=== PATIENT | female | born 2000 | race Caucasian/White ===

== ENCOUNTER → 2025-02-03 | Outpatient (CLI) | payer BC, SELFPAY | END | disposition home or self-care (01) | PROVIDERS: Referring Provider Nurse Practitioner Women's Health; Visit Provider Nurse Practitioner Women's Health | DX: N82.5 Female genital tract-skin fistulae (principal) | CPT/HCPCS: 87070; 87077; 87186; 87205 ==

== ENCOUNTER → 2025-02-14 | Outpatient (CLI) | payer BC, SELFPAY ==
--- NOTE | 2025-02-14 10:50 | CT_ITS ---
PROCEDURE: PELVIS WITH IV CONTRAST 02/14/2025 REASON FOR EXAM: VAGINAL FISTULA TECHNIQUE: Procedure Code: CTPELW Modality: CT Procedure: PELVIS WITH IV CONTRAST CONTRAST: Isovue 370 VOLUME: 90 mL One or more dose reduction techniques were used (e.g., Automated exposure control, adjustment of the mA and/or kV according to patient size, use of iterative reconstruction technique). RADIATION DOSE SUMMARY: CTDlvol: 28 mGy DLP: 820 mGycm COMPARISON: None FINDINGS: Bladder: Normal Reproductive Organs: Uterus is anteverted. No adnexal mass. The vagina is collapsed. No mass is seen. No definite fistulous collection is seen between the vagina in the adjacent organs. Bowel: Partially imaged small bowel is normal. A few colonic diverticula are present without diverticulitis. The wall of the rectum is not particularly thickened. Mesorectal lymph node left posterolaterally is 11 x 9 mm. Smaller lymph node slightly more superior and anterior is 7 mm round. Appendix: Normal Lymph nodes: Right obturator lymph node is 10 mm round. Vasculature: Limited but normal. Peritoneum / Retroperitoneum: No free fluid, free air, phlegmon or abscess. Bones: Unremarkable. CT/Pelvis WITH IV Contrast IMPRESSION: No vaginal fistula seen. Non-specific prominence of mesorectal lymph nodes. Unremarkable appearance of the rectum; no mass, wall thickening or inflammation seen. Reading Location: [id number]
== END | disposition home or self-care (01) ==
PROVIDERS: Referring Provider Nurse Practitioner Women's Health; Visit Provider Nurse Practitioner Women's Health
DX: N82.5 Female genital tract-skin fistulae (principal)
CPT/HCPCS: 72193; Q9967

== ENCOUNTER 2025-03-04 11:16 | Day surgery (SDC) | payer BC, SELFPAY ==
[2025-02-27 16:45] LABS: Hematocrit 42.8 % (37-47); Hemoglobin 14.2 g/dL (12.0-15.0); Immature Granulocytes Count 0.050 X10^3/uL (0.0-0.0); Mean Corp Hgb Conc 33.2 g/dL (32-36); Mean Corpuscular Volume 91.6 fL (81-99); Mean Platelet Vol. 9.0 fl (6.2-12.0); NRBC Flagged by Analyzer 0 % (0-5); Platelet Count 439 K/mm3 (150-450); RBC Distribution Width CV 12.3 % (11.6-14.6); RBC Distribution Width SD 41.0 fl (35.1-43.9); Red Blood Count 4.67 M/mm3 (4.2-5.4); White Blood Count 14.2 K/mm3 (4.4-11.0)
[2025-03-04] VITALS (8 sets, daily range): BP systolic 97–117; BP diastolic 54–74; PULSE 63–104; RESP 16; TEMP 36.2–36.6; O2SAT 95–100; BMI 33.3
[2025-03-04 11:45] LABS: Internal QC Validated? YES +Cl - CLEAR BKGD; Pregnancy, Urine Negative Negative; Record Kit Lot#,Urine Preg 0000964736
[2025-03-04] MEDS: Lactated Ringers 1,000 ML 15 ML IV (11:49)
--- NOTE | 2025-03-04 12:14 | PCM.PRE.AN2 ---
ASA Classification* ASA Classification ASA Classification: 1 Assessment & Plan Anesthesia* Anesthesia Assessment Anesthesia Assessment: Discussed sedation and/or anesthesia options, risks, benefits, and alternatives with patient/parents/legal guardian/POA. Questions invited. The patient/parents/legal guardian/POA seems to understand and agrees to proceed with anesthesia plan. Reviewed the physical assessment, medical history, allergy history and patient home medications list prior to surgery/procedure/anesthetic and documented any changes. Performed airway and anesthesia risk assessments. Anesthesia Type Anesthesia Type: MAC History Source History Obtained from:: Patient and Chart Anesthesia Focused Assessment* Temperature: 97.7 F Pulse Rate: 63 Blood Pressure: 117/74 Respiratory Rate: 16 Pulse Ox: 100 Oxygen Delivery Method: Room Air Airway Assessment Mouth opens: >3 cm Mallampati Score: I Teeth Condition: Intact Neck Range of motion (ROM): Full ROM Labs Anesthesia Preop lab: CBC WBC, (4.4-11.0) 14.2 K/mm3 H 02/27/25, 16:15 RBC, (4.2-5.4) 4.67 M/mm3 02/27/25, 16:15 Hgb, (12.0-15.0) 14.2 g/dL 02/27/25, 16:15 Hct, (37-47) 42.8 % 02/27/25, 16:15 Plt Count, (150-450) 439 K/mm3 02/27/25, 16:15 CHEMISTRY COAG Urine Test Negative Negative Today, 11:28 Pre-Assessment Diagnosis/Proposed Procedure Planned Operative Procedure(s): I&D OF VAGINAL ABSCESS TRACK Anesthesia History 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 When Was Last Pacemaker Check QUESTION #4 FULL TEXT: You/Your Family Experience fever (hyperthermia) with Anesthesia Last Oral Intake Last Oral intake: Last Oral Intake NPO since 21:00 03/04/25 11:43 Meds taken in AM with sips of No 03/04/25 11:43 water? Meds patient instructed to take am of surgery PONV PONV - automobile service station attendant: PONV - automobile service station attendant Female Yes 02/26/25 16:10 HX of Motion Sickness No 02/26/25 16:10 HX of N/V After Surgery No 02/26/25 16:10 Non-Smoker No 02/26/25 16:10 Duration of Surgery greater No 02/26/25 16:10 than 60 minutes Number of Risk Factors 1 02/26/25 16:10 PONV Score Low Risk 02/26/25 16:10 Height & Weight Height & Weight: Anesthesia: Height & Weight Height 4 ft 11 in 03/04/25 11:43 Weight: 75 kg 03/04/25 11:43 Body Mass Index (BMI) 33.3 03/04/25 11:43 Respiratory Assessment Respiratory Assessment - automobile service station attendant: Respiratory Tract Infection Hx - automobile service station attendant Hx Respiratory Tract Infection No 02/26/25 16:10 STOP Sleep Apnea STOP Sleep Apnea - automobile service station attendant: STOP Sleep Apnea - automobile service station attendant Hx Hypertension No 02/26/25 16:10 Hx Sleep Apnea No 02/26/25 16:10 CPAP BIPAP Do you snore loudly (louder No 02/26/25 16:10 than talking or can be heard Do you often feel tired/ No 02/26/25 16:10 fatigued/ sleepy during daytime? Has anyone observed you stop No 02/26/25 16:10 breathing during sleep? STOP Results Negative 02/26/25 16:10 QUESTION #5 FULL TEXT : Do you snore loudly (louder than talking or can be heard through closed doors)? Tobacco Use History Tobacco Use History - automobile service station attendant: Tobacco Use History - automobile service station attendant Tobacco Use Smoking Status Current every day smoker 02/26/25 16:10 Hx Tobacco Use Yes 02/26/25 16:10 Years Smoking Packs Smoked per Day Smoking Cessation Date was within the last 15 years Hx Smoking Cessation Date Hx Smoking Cessation Counseling Hematologic Medial History Hematologic Hx - automobile service station attendant: Hematologic Medical Hx - health care administrator Hx of Blood Transfusion No 02/26/25 16:10 Hx of Transfusion in last 3 No 02/26/25 16:10 Months Date of Last Transfusion (if within last 3 months) Ever experience any problems No 02/26/25 16:10 with transfusion(s)? Specify any problems Hx of Preganancy in last 3 No 02/26/25 16:10 Months Nurse Filling Out Transfusion DSCHRIBER 02/26/25 16:10 & Questions: Date: 02/26/25 02/26/25 16:10 Time: 16:12 02/26/25 16:10 Patient unable to answer at this time (ie. confused, unrespo /Reproduction History /Reproductive History - automobile service station attendant: /Reproductive Hx- automobile service station attendant Hx Now No 02/26/25 16:10 Gestational Age (in weeks): EDC: Hx Hx Para Hx Section SAB No 02/26/25 16:10 Active Medications Active Medications: Current Medications Generic Name Dose Route Start Last Admin Trade Name Freq PRN Reason Stop Dose Admin Lactated Ringer's 1,000 mls @ 15 mls/hr 03/04/25 11:30 03/04/25 11:49 IV 15 mls/hr .Q48H KHADIJAH Administration PFSH Medical History (Updated 02/26/25 @ 16:15 by Lory Miguel) Marijuana use Migraine headache Shortness of breath on exertion Vapes nicotine containing substance Loss of consciousness Anxiety and depression Perineal abscess Bartholin's cyst Home Medications ?Medication ?Instructions ?Recorded ?Last Taken ?Type cholecalciferol (vitamin D3) 100 100 mcg PO QDAY 01/27/25 Unknown History mcg (4,000 unit) tablet drospirenone 3 mg-ethinyl 1 tab PO QDAY 01/27/25 Unknown History estradiol 0.03 mg tablet propranolol 60 mg capsule,24 60 mg PO QHS 01/27/25 Unknown History hr,extended release quetiapine 50 mg tablet 50 mg PO QHS 01/27/25 Unknown History inulin-chromium picolinate 2 2 tab PO DAILY 02/03/25 Unknown History gram-100 mcg chewable tablet (Fiber Gummies (with chromium)) spironolactone 100 mg tablet 100 mg PO QDAY #60 tabs 02/03/25 Unknown Rx (Aldactone) Lactobacillus acidophilus 0.5 mg 0.5 mg PO DAILY 02/26/25 Unknown History (100 million cell) tablet Allergy/AdvReac Type Severity Reaction Status Date / Time cat dander (cats) Allergy Mild dry skin Verified 03/04/25 11:36 Family History Grandmother Breast cancer Diabetes Father Alcoholism Mother Diabetes Anxiety Aunt Breast cancer Surgical History H/O oral surgery Social History current occupational status: employed current occupation: [employer] Smoking Status: Former smoker quit date: 01/30/25 alcohol intake: never substance use type: does not use seatbelt use: always do you feel safe at home: Yes Review of Systems (Anesthesia) ROS Narrative System reviewed and no additional complaints, except as documented.
--- OUTSIDE RECORDS SUMMARY | 2025-03-04 12:51 | XMS RPT_ITS | CCD ---
Author Organization [facility] Care Team Providers Care Manager Imaging Name Role Phone Unavailable Primary Care Provider UnavailMIRIAM Loco Attending Unavailable NIKHIL RUBIO Attending Unavailab NATALIE Mcbride Primary Care Unavailable NATALIE SIMPSON Primary Care Unavailable VAHE HERNANDEZ Attending Unavailable PREETHI MILLER, DR NATALIE Fulton Attending Unavailable MARTA JIMENEZ MD Primary Care Unavail able [facility] STALLION KEEPER-RAIL OPERATOR, [facility] Primary Care Unava ilable [facility] [employer], BROOKE Sterling Attending Unava ilable [facility] [place] Primary Care Provider [place] STALLION KEEPER - [facility], [place] Primary Care Provider MELVIN RAMIREZ Attending Unavailable [facility] Care Unavailable [employer] STALLION KEEPER-RAIL OPERATOR, BROOKE N Attending Unava ilable [employer] STALLION KEEPER-RAIL OPERATOR, [facility] Primary Care Unava ilable Sue FINANCE LECTURER-CPam Attending Provider Sue FINANCE LECTURER-C, Pam Referring Provider [phone] [facility] [place] Primary Care Provider Dr. Jacey Paul DO Attending Provider Jacey Paul Referring Unavailabl e AMANDEEP CURRIE Primary Care Unavailable Jacey Paul Attending Unavailabl e Sue FINANCE LECTURERPam Attending Unavailable [place] FINANCE LECTURER, Pam Referring Unavailable KUSH, AMANDEEP Primary Care Unavailable [place] FINANCE LECTURER, Pam Attending Unavailable [place] FINANCE LECTURER, Pam Referring Unavailable Jacey Paul Attending UnavailPam Cook NP Attending Unavailable Allergies Allergy Classification Reported Allergen(s) Allergy Type Date of Onset Reaction(s) Facility (4 sources) cat dander; Translations: [cat dander] Allergy to substance 02-03-2025 dry skin [facility] Medications Current Medications Medication Drug Class(es) Dates Sig (Normalized) Sig (Original) acyclovir 400 mg oral tablet (2 sources) Herpesvirus Nucleoside Analog DNA Polymerase Inhibitor, Herpes Simplex Virus Nucleoside Analog DNA Polymerase Inhibitor, Herpes Zoster Virus Nucleoside Analog DNA Polymerase Inhibitor Start: 07-06-2023 take 1 tablet by mouth once daily acyclovir (Zovirax) 400 MG tablet Take 400 mg by mouth daily. 0 07/06/2023 Active aluminum chloride 200 mg/ml topical solution (4 sources) Start: 08-11-2023 Drysol 20 % external solution APPLY 1 APPLICATION TOPICALLY TWICE A WEEK NEEDED FOR EXCESSIVE SWEATING 08/11/2023 Active amoxicillin 875 mg oral tablet (1 source) Penicillin-class Antibacterial Start: 06-28-2022 End: 07-08-2022 take 1 tablet by mouth every twelve hours amoxicillin (AMOXIL) 875 mg tablet Indications: Acute non-recurrent maxillary sinusitis Take 1 tablet by mouth every 12 hours for 10 days. 20 tablet 0 06/28/2022 07/08/2022 Active Comment on above: Take 1 tablet by norah th every 12 hours for 10 days. cholecalciferol 0.1 mg oral tablet (3 sources) Vitamin D Start: 01-27-2025 take 1 tablet by mouth once daily Cholecalciferol (Vitamin D3) 100 mcg (4,000 unit) tablet Active 100 ug PO daily January 27, 2025 12:00am chromium picolinate 0.1 mg / inulin 2000 mg chewable tablet (3 sources) Start: 02-03-2025 Inulin-Chromium Picolinate (Fiber Gummies (With Chromium)) 2-100 gram-mcg tablet,chewable Active {tbl} PO February 03, 2025 12:00am Drospirenone-Ethinyl Estradiol (7 sources) Progestin, Estrogen Start: 01-27-2025 Drospirenone-Ethinyl Estradiol 3-0.03 mg tablet Active 1 {tbl} PO daily January 27, 2025 12:00am Start: 02-07-2024 End: 02-06-2025 drospirenone-ethinyl estradi ol (Maggie, Ocella) 3-0.03 MG tablet Indications: control counseling Take 1 tablet by mouth daily. 84 tablet 3 02/07/2024 02/06/2025 Active Start: 09-08-2023 End: 09-07-2024 drospirenone-ethinyl estradi ol (Cailin, Gianvi) 3-0.02 MG tablet Indications: control counseling Take 1 tablet by mouth daily. 28 tablet 11 09/08/2023 02/07/2024 Discontinued fluticasone propionate 0.05 mg/actuat metered dose nasal spray (4 sources) Corticosteroid Start: 08-18-2023 fluticasone (Flonase) 50 MCG/ACT nasal spray 08/18/2023 Active omeprazole 40 mg delayed release oral capsule (2 sources) Proton Pump Inhibitor Start: 11-16-2022 omeprazole (PriLOSEC) [address] capsule 24 hr propranolol hydrochloride 60 mg extended release oral capsule (7 sources) beta-Adrenergic Shannan Start: 01-27-2025 take 1 capsule by mouth once daily Propranolol 60 mg capsule,extended release 24 hr Active 60 mg PO daily January 27, 2025 12:00am Start: 08-18-2023 propranolol LA (Inderal LA) 60 MG 24 hr capsule 08/18/2023 Active QUEtiapine 50 mg oral tablet (7 sources) Atypical Antipsychotic Start: 01-27-2025 take 1 tablet by mouth once daily Quetiapine 50 mg tablet Active 50 mg PO daily January 27, 2025 12:00am Start: 10-13-2022 QUEtiapine (SE ROquel) 25 MG tablet 10/13/2022 Active spironolactone 100 mg oral tablet (3 sources) Aldosterone Antagonist Start: 02-03-2025 take 1 tablet by mouth once daily Spironolactone (Aldactone) 100 mg tablet Active 100 mg PO daily 60 2 February 03, 2025 12:00am sulfamethoxazole 800 mg / trimethoprim 160 mg oral tablet (2 sources) Dihydrofolate Reductase Inhibitor Antibacterial, Sulfonamide Antimicrobial Start: 08-22-2023 sulfamethoxazole-tr imethoprim (Bactrim DS) 800-160 MG tablet topiramate 25 mg oral tablet (4 sources) Start: 08-18-2023 topiramate (Topamax) 25 MG tablet 08/18/2023 Active traMADol hydrochloride 50 mg oral tablet (2 sources) Opioid Agonist Start: 08-22-2023 traMADol (Ultram) 50 MG tablet Completed/Discontinued Medications Medication Drug Class(es) Dates Sig (Normalized) Sig (Original) acetaminophen 500 mg oral tablet (1 source) take 1 tablet by mouth every eight hours as needed acetaminophen (TYLENOL EXTRA STRENGTH) 500 mg tablet Take 500 mg by mouth every 8 hours as needed. 0 Active Comment on above: Take 500 mg by mouth every 8 hours as needed. ampicillin 500 mg oral capsule (4 sources) Penicillin-class Antibacterial Start: 02-06-2025 End: 02-18-2025 take 1 capsule by mouth every eight hours Ampicillin 500 mg capsule Discontinued 500 mg PO Q8H 15 5 0 February 13, 2025 4:33pm February 17, 2025 12:00am February 18, 2025 12:06am doxycycline monohydrate 100 mg oral capsule (3 sources) Tetracycline-class Drug Start: 02-03-2025 End: 02-06-2025 take 1 capsule by mouth twice daily Doxycycline Monohydrate 100 mg capsule Discontinued 100 mg PO TWICE A DAY 20 10 0 February 03, 2025 12:00am February 12, 2025 12:00am February 06, 2025 12:27pm Pseudoephedrine (1 source) alpha-Adrenergic Agonist pseudoephedrine HCl (SUDAFED ORAL) Take by mouth. 0 Active Comment on above: Take by mouth. Problems Active Problems Problem Classification Problem Date Documented Date Episodic/Chronic Anxiety disorders (3 sources) Mixed anxiety and depressive disorder; Translations: [Anxiety disorder, unspecified] 02-03-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 Contraceptive and procreative management (2 sources) Patient encounter status; Translations: [Encounter for other general counseling and advice on contraception] 09-08-2023 Episodic Fever of unknown origin (1 source) Fever, unspecified; Translations: [Fever, unspecified fever cause] Onset: 06-28-2022 Episodic Inflammatory diseases of female pelvic organs (4 sources) Abscess of right Bartholin's gland; Translations: [Abscess of Bartholin's gland] Onset: 12-30-2024 08-25-2023 Episodic Malaise and fatigue (2 sources) Other fatigue; Translations: [Other fatigue] Onset: 08-11-2023 Episodic Nonspecific chest pain (1 source) Chest pain, unspecified; Translations: [Chest pain, unspecified type] Onset: 06-28-2022 Episodic Other eye disorders (2 sources) Ocular pain, right eye; Translations: [Pain of right eye] Onset: 08-16-2022 Episodic Other female genital disorders (4 sources) Vaginoperineal fistula; 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-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 Other female genital disorders (1 source) Other female genital tract fistulae; Translations: [Other female genital tract fistulae] Onset: 02-26-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 Other female genital disorders (1 source) Female genital tract-skin fistulae; Translations: [Female genital tract-skin fistulae] Onset: 02-28-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 Other female genital disorders (4 sources) Cyst of vulva; Translations: [Vulvar cyst] 02-03-2025 Episodic Other skin disorders (4 sources) Axillary hidradenitis suppurativa; Translations: [Hidradenitis suppurativa] 02-03-2025 Episodic Comment on above: as teenager Other upper respiratory infections (1 source) Acute maxillary sinusitis, unspecified; Translations: [Acute non-recurrent maxillary sinusitis] Onset: 06-28-2022 Episodic Residual codes; unclassified (2 sources) High risk heterosexual behavior; Translations: [High risk heterosexual behavior] Onset: 08-11-2023 Episodic Past or Other Problems Problem Classification Problem Date Documented Date Episodic/Chronic Immunizations and screening for infectious disease (2 sources) Contact with and (suspected) exposure to infections with a predominantly sexual mode of transmission; Translations: [Contact with and (suspected) exposure to infections with a predominantly sexual mode of transmission] Onset: 08-18-2022 Episodic Residual codes; unclassified (2 sources) Family history of malignant neoplasm of breast; Translations: [Family history of malignant neoplasm of breast] Onset: 12-08-2023 Episodic Results Test Name Value Interpretation Reference Range Facility CBC W/Diff, Automatedon - Absolute Lymph 3.40 X10 3/uL Normal 0.83-4.51 [facility] Comment on above: Performed By: #### BTSPAT, L100.0100 ### # [facility] [address] [place], [address] Absolute Neut 9.4 X10 3/uL High 2.0-7.7 [facility] Comment on above: Performed By: #### BTSPAT, L100.0100 ### # [facility] [address] [place], [address] Basophils/100 WBC (Bld) 0.4 % Normal 0-1 [facility] Comment on above: Performed By: #### BTSPAT, L100.0100 ### # [facility] [address] [place], [address] Eosinophils/100 WBC (Bld) 2.9 % Normal 0-5 [facility] Comment on above: Performed By: #### BTSPAT, L100.0100 ### # [facility] [address] [place], [address] Erythrocyte distribution width (RBC) [Ratio] 12.3 % Normal 11.6-14.6 [facility] Comment on above: Performed By: #### BTSPAT, L100.0100 ### # [facility] [address] [place], [address] Hematocrit (Bld) [Volume fraction] 42.8 % Normal 37-47 [facility] Comment on above: Performed By: #### BTSPAT, L100.0100 ### # [facility] [address] [place], [address] Hemoglobin (Bld) [Mass/Vol] 14.2 g/dL Normal 12.0-15.0 [facility] Comment on above: Performed By: #### BTSPAT, L100.0100 ### # [facility] [address] [place], [address] IG% 0.400 Normal 0.0-0.9 [facility] Comment on above: Result Comment: IG% - Immature Granulocy echo (promyelocytes, myelocytes and metamyelocytes) > 1% indicates that a LEFT SHIFT is Present. Performed By: #### B TSPAT, L100.0100 #### [facility] [address] [place], [address] Lymphocytes/100 WBC (Bld) 24.0 % Normal 19-41 [facility] Comment on above: Performed By: #### BTSPAT, L100.0100 ### # [facility] [address] [place], [address] MCH (RBC) [Entitic mass] 30.4 pg Normal 27.0-32.0 [facility] Comment on above: Performed By: #### BTSPAT, L100.0100 ### # [facility] [address] [place], [address] MCHC (RBC) [Mass/Vol] 33.2 g/dL Normal 32-36 [facility] Comment on above: Performed By: #### BTSPAT, L100.0100 ### # [facility] [address] [place], [address] MCV (RBC) [Entitic vol] 91.6 fL Normal 81-99 [facility] Comment on above: Performed By: #### BTSPAT, L100.0100 ### # [facility] [address] [place], [address] Monocytes/100 WBC (Bld) 5.7 % Normal 0-10 [facility] Comment on above: Performed By: #### BTSPAT, L100.0100 ### # [facility] [address] [place], [address] Neutrophils/100 WBC (Bld) 66.6 % Normal 47-70 [facility] Comment on above: Performed By: #### BTSPAT, L100.0100 ### # [facility] [address] [place], [address] Nucleated RBC (Bld) [#/Vol] 0 10*3/uL Normal 0-5 [facility] Comment on above: Performed By: #### BTSPAT, L100.0100 ### # [facility] [address] [place], [address] Platelet mean volume (Bld) [Entitic vol] 9.0 fL Normal 6.2-12.0 [facility] Comment on above: Performed By: #### BTSPAT, L100.0100 ### # [facility] [address] [place], [address] Platelets (Bld) [#/Vol] 439 10*3/uL Normal 150-450 [facility] Comment on above: Performed By: #### BTSPAT, L100.0100 ### # [facility] [address] [place], [address] RBC (Bld) [#/Vol] 4.67 10*6/uL Normal 4.2-5.4 [facility] Comment on above: Performed By: #### BTSPAT, L100.0100 ### # [facility] [address] [place], [address] RDW SD 41.0 fl Normal 35.1-43.9 [facility] Comment on above: Performed By: #### BTSPAT, L100.0100 ### # [facility] [address] [place], [address] WBC (Bld) [#/Vol] 14.2 10*3/uL High 4.4-11.0 [facility] Comment on above: Performed By: #### BTSPAT, L100.0100 ### # [facility] [address] [place], [address] Type AND Screen - PAT ONLYon 02-27-2025 Ab SCREEN GEL Negative Normal [facility] Comment on above: Order Comment: Surgery Date: 03/04/25 Reason for Laboratory Test PREOP 20250304 No N N S I D VAGINAL ABCESS TRACK Performed By: #### B TSPAT, L100.0100 #### [facility] [address] [place], [address] ABO and Rh group Nom (Bld) Blood group O Rh(D) positive Normal [facility] Comment on above: Order Comment: Surgery Date: 03/04/25 Reason for Laboratory Test PREOP 20250304 No N N S I D VAGINAL ABCESS TRACK Performed By: #### B TSPAT, L100.0100 #### [facility] [address] [place], [place], [address] [employer] Office Visit Reporton 02-25-2025 [employer] Office Visit Report [facility] [address], [address] [place] [address] OFFICE VISIT Date of Service: 02/25/25 MR#: [id number] Acct: [id number] Name: ANIKA METZGER Rep #: [id number] : 2000 Provider: Dr. Jacey Wagoner DO Age/Sex: 24/F [place] [facility] [place]: Signed Intake Vital Signs 02/03/25 08:50 02/25/25 13:41 Height 4 ft 11 in 4 ft 11 in Weight: 168 lb 165 lb 8 oz BMI 33.9 33.4 BP 112/82 H 115/62 Intake Visit Reasons: I D under anesthesia Binder Stripper Machine Required: No Is patient in pain?: No Allergies cat dander (cats) Allergy (Mild, Verified 02/25/25 13:46) dry skin Medications ???Medication ???Instructions ???Recorded ???Confirmed ???Type cholecalciferol (vitamin D3) 100 100 mcg PO QDAY 01/27/25 02/25/25 History mcg (4,000 unit) tablet drospirenone 3 mg-ethinyl 1 tab PO QDAY 01/27/25 02/25/25 Hi story estradiol 0.03 mg tablet propranolol 60 mg capsule,24 60 mg PO QDAY 01/27/25 02/25/25 Hi story hr,extended release quetiapine 50 mg tablet 50 mg PO QDAY 01/27/25 02/25/25 Hi story inulin-chromium picolinate 2 tab PO 02/03/25 02/25/25 History gram-100 mcg chewable tablet (Fiber Gummies (with chromium)) spironolactone 100 mg tablet 100 mg PO QDAY #60 tabs 02/03/25 0 02/25/25 Rx (Aldactone) Post menopausal: No Patient : No : No Control [facility] Medical History Anxiety and depression Perineal abscess Bartholin's cyst Surgical History H/O oral surgery Family History Grandmother Breast cancer Diabetes Father Alcoholism Mother Diabetes Anxiety Aunt Breast cancer Social History current occupational status: employed current occupation: [employer] Smoking Status: Former smoker quit date: 01/30/25 alcohol intake: never substance use type: does not use seatbelt use: always do you feel safe at home: Yes HPI I D under anesthesia Details: ANIKA METZGER is a 24 year old who presents for discussion about a vaginal track that expresses purulent material both spontaneously and with manipulation of the gland on the left side of her vagina. Recent MRI shows that she does not have a recto/ vaginal fistula. She had a Bartholin gland cyst I D'd 2 years ago. She declined the word catheter at that time. It appears that this then developed a superficial fistula within the perineal body. After a long discussion about treatment options, she has decided that she would like for me to open the fistula track for surgical healing. History 1 Elective abortions 1 Hx Para 0 Spontaneous abortions Hx # Term Pregnancies Ectopic pregnancies Hx # Pregnancies Multiple births # of living children 0 ROS Const ROS Unobtainable: All systems reviewed are unremarkable except as noted in H Resp Resp: Reports system reviewed and no additional complaints, except as documented; Denies cough GI GI: Reports as per HPI Psych Psych: Reports system reviewed and no additional complaints, except as documented Exam Const General: cooperative, healthy appearing, comfortable and no acute distress Resp Effort Inspection: normal respiratory effort Other: small opening to the left and 3 cm below the perinum. A 2 cm fluctuant gland is palpated on the lower left side of introitus. When this is pushed on, purulent material comes our of the small opening. 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 I have discussed with the patient the risks, benefits, and alternatives of the procedure which include but are not limited to risks of anesthesia, bleeding, infection, possible damage to bowel, bladder, or surrounding vasculature which could lead to additional surgery to evaluate any complications. Patient agrees to procedure and wishes to proceed. ACOG/uptodate references given for additional information regarding procedure. plan is to insert a small lacramal duct probe into the track and unroof the track to allow for secondary healing. 02/25/25 1510 Date _ Jacey Mcneal Signature: Date (more content not included)... Normal [facility] Pelvis WITH IV Contraston Pelvis WITH IV Contrast [facility] Services [address] [place] [address] Pelvis WITH IV Contrast MR#: [id number] Acct: [id number] Name: ANIKA METZGER Rep #: [id number] : 2000 F 24 From: Kennedy Motley MD PCP: BROOKE ESQUIVEL Status: REG CLI Study: Pelvis WITH IV Contrast Date of Exam: 02/14/25 Exam# [id number] Ordering Dr: Jacey Paul DO PROCEDURE: PELVIS WITH IV CONTRAST 02/14/2025 REASON FOR EXAM: VAGINAL FISTULA TECHNIQUE: Procedure Code: CTPELW Modality: CT Procedure: PELVIS WITH IV CONTRAST CONTRAST: Isovue 370 VOLUME: 90 mL One or more dose reduction techniques were used (e.g., Automated exposure control, adjustment of the mA and/or kV according to patient size, use of iterative reconstruction technique). RADIATION DOSE SUMMARY: CTDlvol: 28 mGy DLP: 820 mGycm COMPARISON: None FINDINGS: Bladder: Normal Reproductive Organs: Uterus is anteverted. No adnexal mass. The vagina is collapsed. No mass is seen. No definite fistulous collection is seen between the vagina in the adjacent organs. Bowel: Partially imaged small bowel is normal. A few colonic diverticula are present without diverticulitis. The wall of the rectum is not particularly thickened. Mesorectal lymph node left posterolaterally is 11 x 9 mm. Smaller lymph node slightly more superior and anterior is 7 mm round. Appendix: Normal Lymph nodes: Right obturator lymph node is 10 mm round. Vasculature: Limited but normal. Peritoneum / Retroperitoneum: No free fluid, free air, phlegmon or abscess. Bones: Unremarkable. CT/Pelvis WITH IV Contrast IMPRESSION: No vaginal fistula seen. Non-specific prominence of mesorectal lymph nodes. Unremarkable appearance of the rectum; no mass, wall thickening or inflammation seen. Reading Location: [id number] CC: Dr. Jacey Paul DO; BROOKE ESQUIVEL Liquor Inspector: Signed Normal [facility] Wound Cultureon 02-06-2025 WC Pending Strep anginosus Amount Growth 1+ Staphylococcus epidermidis Staphylococcus epidermidis Strep anginosus: REACTION Ampicillin Islt CADENCE <=0.25 S Penicillin G Islt CADENCE <=0.06 Cefotaxime Islt CADENCE 2 R cefTRIAXone Islt CADENCE 0.25 S Erythromycin Islt CADENCE <=0.12 S Staphylococcus epidermidis: REACTION cefOXitin Susc Islt POS Doxycycline Islt CADENCE >=16 Clindamycin Islt CADENCE <=0.12 S Clindamycin.induced Susc Islt NEG Erythromycin Islt CADENCE >=8 R Gentamicin Islt CADENCE <=0.5 S Linezolid Islt CADENCE 2 S Oxacillin Susc Islt >=4 R Tetracycline Islt CADENCE >=16 R TMP SMX Islt CADENCE 160 R Vancomycin Islt CADENCE 2 S Normal [facility] Comment on above: Performed By: #### M100.3000, M100.1999 #### [facility] [address] [place], [address] Gram Stainon 02-03-2025 GS Gram Stain No organisms seen 1+ White Blood Cells Normal [facility] Comment on above: Performed By: #### M100.3000, M100.1999 #### [facility] [address] [place], [address] Gram stainOrdered By: Pam Rogers on 02-03-2025 Microscopic observation Gram stain Nom (Unsp spec) [facility] [employer] Office Visit Reporton 02-03-2025 [employer] Office Visit Report [facility] [address], [address] [place] [address] OFFICE VISIT Date of Service: 02/03/25 MR#: [id number] Acct: [id number] Name: ANIKA METZGER Rep #: [id number] : 2000 Provider: RAMAKRISHNA cash Age/Sex: 24/F [place] [facility] [place]: Signed Intake Vital Signs 02/03/25 08:50 Height 4 ft 11 in Weight: 168 lb BMI 33.9 BP 112/82 H Intake Visit Reasons: Vaginal Cyst (Daily) Chief Complaint: Vaginal cyst (Daily) Binder Stripper Machine Required: No Is patient in pain?: No Allergies cat dander (cats) Allergy (Mild, Verified 02/03/25 08:45) dry skin Medications ???Medication ???Instructions ???Recorded ???Confirmed ???Type cholecalciferol (vitamin D3) 100 100 mcg PO QDAY 01/27/25 02/03/25 History mcg (4,000 unit) tablet drospirenone 3 mg-ethinyl 1 tab PO QDAY 01/27/25 02/03/25 Hi story estradiol 0.03 mg tablet propranolol 60 mg capsule,24 60 mg PO QDAY 01/27/25 02/03/25 Hi story hr,extended release quetiapine 50 mg tablet 50 mg PO QDAY 01/27/25 02/03/25 Hi story doxycycline monohydrate 100 mg 100 mg PO BID 10 days #20 caps 02/03/25 Rx capsule inulin-chromium picolinate 2 tab PO 02/03/25 02/03/25 History gram-100 mcg chewable tablet (Fiber Gummies (with chromium)) spironolactone 100 mg tablet 100 mg PO QDAY #60 tabs 02/03/25 0 02/03/25 Rx (Aldactone) Is last menstrual period known: Yes Last Menstrual Period: 01/27/25 Post menopausal: No Patient : No : No Control Method: OCP [facility] Medical History (Updated 02/03/25 @ 10:02 by Pam Rogers FINANCE LECTURER, FINANCE LECTURER-C) Anxiety and depression Perineal abscess Bartholin's cyst Surgical History (Updated 02/03/25 @ 08:[address]) H/O oral surgery Family History Grandmother Breast cancer Diabetes Father Alcoholism Mother Diabetes Anxiety Aunt Breast cancer Social History (Updated 02/03/25 @ 08:[address]) current occupational status: employed current occupation: [employer] Smoking Status: Former smoker quit date: 01/30/25 alcohol intake: never substance use type: does not use seatbelt use: always do you feel safe at home: Yes HPI Vaginal Cyst (Daily) Details: ANIKA METZGER is a 24 year old who presents for new patient that has 3 vaginal cysts that are off and on painful and draining brown discharge. Saw Brooke Esquivel [employer]UR[employer], her PCP who did an I D but hasn't healed properly. This started in September. Has been on bactrim and keflex. States will not heal so PCP referred here. Also states had axillary hidradenitis at teen. She had I D of another vaginal abscess >1 year ago that healed appropriately. States up to date on paps. She is sexually active, on OCP. Past treatment chlamydia, gonorrhea. Denies new partner since last STD exam with PCP. Female Reproductive History Last Menstrual Period: 01/27/25 Cycle Length: 21-35 Questions: metrorrhagia: No, sexually active: Yes, dyspareunia: No and PCB: No History 1 Elective abortions 1 Hx Para 0 Spontaneous abortions Hx # Term Pregnancies Ectopic pregnancies Hx # Pregnancies Multiple births # of living children 0 ROS Const Constitutional: Reports system reviewed and no additional complaints, except as documented Eyes Eyes: Reports system reviewed and no additional complaints, except as documented GI GI: Denies abdominal pain or change in bowel habits : Reports as per HPI Exam Const General: cooperative and no acute distress Nutritional Appearance: well nourished Orientation: oriented x3 External Female Exam: normal appearance of the urethra Urethra: normal appearance of the urethra Other: left perineal space with pinpoint opening, can feel firm tract towards vaginal introitus. Able to compress yellow puslike discharge, culture collected. 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 Discussed can be related to previous history of hydradenitis. CT of vaginal area to confirm no rectal involvement Management will be dependent on CT results. 02/03/25 1008 Da (more content not included)... Normal [place] [facility] Routine wound cultureOrdered By: Pam Rogers on 02-03-2025 Microbial culture, routine Staphylococcus epidermidis Abnormal [place] [facility] 36on 10-09-2024 36 Called and LVM to sc hedule an appointment / see how she is doing. Informed patient to call back if she is wanting to follow up. Vivien Barakat MA [facility] 36on 10-08-2024 36 S: Patient Provider Brooke Alvin called the clinical access center stating she has a lump in the vagina B: Concern for calixto gland blockage A: Reporting the gland was excised in the office and is draining . She has increased pain and is concerned she may need surgical intervention . R:No availability at the office today . Brooke stated she will send her to the ED . Patient instructed to call back with worsening symptoms, concerns or questions. Reason for Disposition SEVERE vaginal pain and not improved 2 hours after pain medicine Protocols used: Vaginal [id number] [facility] Office Visiton 12-08-2023 Follow-up visit [id number] Kristyn Metzger 2000 F Date Provider Department Center 12/08/2023 [id number]-JHGTHGYMELVIN RAMIREZ [facility] Family History Problem Relation Age of Onset Breast cancer Paternal Grandmother Comments: Unsure age Diabetes Mother Breast cancer Father's Sister 40 - 49 Family Status - Relation Status Age at Paternal Grandmother Father Alive Mother Alive Father's Sister Alive Level of Service:54128 [place] PERIODIC PREVENTIVE MED EST PATIENT 18-39 YRS Reason for Visit and Comments: Annual Exam [83] [facility] Progress Noteon 12-08-2023 Progress Note Anika L Tisha 12/08/2023 23 y.o. Chief Complaint Patient presents with Annual Exam Primary Care Physician: Brooke Esquivel HPI: Anika Metzger is a 23 y.o. female here today for annual exam. Patient's last menstrual period was 11/03/2023 (approximate). control method: started Cailin in august Menses: since starting cailin, have been coming more frequently q21 days instead of q4 weeks Sexually Active: yes Dyspareunia: no HPV Vaccination: yes Had STD testing in jul 2023 Past Medical History: Diagnosis Date Migraine History reviewed. No pertinent surgical history. Family History Problem Relation Name Age of Onset Breast cancer Paternal Grandmother Unsure age Diabetes Mother Breast cancer Father's Sister 40 - 49 OB History Para Term AB Living 1 1 0 SAB IAB Ectopic Multiple Live Births # Outcome Date GA Lbr Tarik/2nd Weight Sex Type Anes PTL Lv 1 AB 06/2023 Surgical Florentino MEDICATIONS: Current Outpatient Medications Medication Sig Dispense Refill drospirenone-ethinyl estradiol (Cailin, Gianvi) 3-0.02 MG tablet Take 1 tablet by mouth daily. 28 tablet 11 Drysol 20 % external solution APPLY 1 APPLICATION TOPICALLY TWICE A WEEK NEEDED FOR EXCESSIVE SWEATING fluticasone (Flonase) 50 MCG/ACT nasal spray propranolol LA (Inderal LA) 60 MG 24 hr capsule QUEtiapine (SEROquel) 25 MG tablet topiramate (Topamax) 25 MG tablet No current facility-administered medications for this visit. ALLERGIES: Allergies as of 12/08/2023 (No Known Allergies) REVIEW OF SYSTEMS Review of Systems Constitutional: Negative for chills and fever. HENT: Negative for congestion and sore throat. Respiratory: Negative for cough and shortness of breath. Cardiovascular: Negative for chest pain and leg swelling. Gastrointestinal: Negative for abdominal pain, constipation, diarrhea, nausea and vomiting. Genitourinary: Negative for dysuria, frequency, pelvic pain, urgency, vaginal bleeding, vaginal discharge and vaginal pain. Musculoskeletal: Negative for back pain. Skin: Negative for wound. Neurological: Negative for syncope and weakness. Psychiatric/Behavioral: Negative for behavioral problems. PHYSICAL EXAMINATION: BP 120/70 Ht 4' 11 (1.499 m) Wt 141 lb (64 kg) LMP 11/03/2023 (Approximate) BMI 28.48 kg/m? Physical Exam Constitutional: Appearance: Normal appearance. HENT: Head: Normocephalic and atraumatic. Mouth/Throat: Mouth: Mucous membranes are moist. Eyes: Extraocular Movements: Extraocular movements intact. Cardiovascular: Rate and Rhythm: Normal rate and regular rhythm. Pulmonary: Effort: Pulmonary effort is normal. Chest: Breasts: Right: No swelling, bleeding, mass, nipple discharge, skin change or tenderness. Left: No swelling, bleeding, mass, nipple discharge, skin change or tenderness. Abdominal: General: There is no distension. Palpations: Abdomen is soft. There is no mass. Tenderness: There is no abdominal tenderness. There is no guarding or rebound. Genitourinary: Exam position: Lithotomy position. Labia: Right: No rash or lesion. Left: No rash or lesion. Vagina: No vaginal discharge or erythema. Cervix: No cervical motion tenderness, discharge, friability, lesion, erythema or cervical bleeding. Uterus: Normal. Not enlarged and not tender. Adnexa: Right adnexa normal and left adnexa normal. Right: No mass or tenderness. Left: No mass or tenderness. Musculoskeletal: General: No swelling. Normal range of motion. Cervical back: Normal range of motion. Lymphadenopathy: Upper Body: Right upper body: No axillary adenopathy. Left upper body: No axillary adenopathy. Skin: General: Skin is warm and dry. Neurological: General: No focal deficit present. Mental Status: She is alert and oriented to person, place, and time. Psychiatric: Mood and Affect: Mood normal. Behavior: Behavior normal. Thought Content: Thought content normal. ASSESSMENT: Diagnosis Plan 1. Well female exam with routine gynecological exam Pap Smear 2. Family history of breast cancer PLAN: - Pap collected - Counseled on breast awareness. Aunt with breast cancer diagnosis in 40s. Discussed genetic testing. Will discuss when she has insurance again - Counseled to exercise at least 30min three times per week. Take a daily multivitamin or 1000 Units of Vit D. - control and barrier recommendations discussed. STD counseling and prevention reviewed. Had negative testing in May (GC/CT/HIV/RPR) - Gardasil counseling completed for all patients 9-45 yo. - Routine health maintenance per patients PCP. Follow up in about 1 year (around 12/07/2024) for Annual Exam. No orders of the defined types were placed in this encounter. Normal [facility] Progress Note ?A automotive service technician was off ered to be present during her exam. The patient: declined Normal [facility] PCRHSVon 08-16-2023 HSV 1/2 Source Blood Normal [facility] ([place]) Comment on above: Performed By: #### GFR, TSH, ADIFF, B12, ANEU, HIV, CBC, LIPID, VIDH, RPR, CMP, [id number] #### [address] [address] PCRHSVon 08-15-2023 HSV-1 DNA Negative Normal Negative [facility] ([place]) Comment on above: Performed By: #### GFR, TSH, ADIFF, B12, ANEU, HIV, CBC, LIPID, VIDH, RPR, CMP, [id number] #### [address] [address] HSV-2 DNA Negative Normal Negative [facility] ([place]) Comment on above: Result Comment: This test was developed and its performance characteristics determined by [employer]. It has not been cleared or approved by the U.S. Food and Drug Administration. The FDA has determined that such clearance or approval is not necessary. This test is used for clinical purposes. It should not be regarded as investigational or research. Performed At: [facility] [id number] Matthew Jaramillo MD Ph:[phone] Performed By: #### G FR, TSH, ADIFF, B12, ANEU, HIV, CBC, LIPID, VIDH, RPR, CMP, [id number] #### [place] [address] CTPCRon 08-13-2023 C. trachomatis Interp Normal See CT Interp N [facility] ([place]) Comment on above: Result Comment: C. trachomatis DNA not d etected. Specimen is presumptive negative for C. trachomatis. A negative result does not preclude C. trachomatis infection because results depend on adequate specimen collection, absence of inhibitors, and sufficient DNA to be detected. See CT Interp N Performed By: #### G FR, TSH, ADIFF, B12, ANEU, HIV, CBC, LIPID, VIDH, RPR, CMP, [id number] #### [place] [id number] C.trachomatis PCR Negative Normal Negative [facility] ([place]) Comment on above: Result Comment: Molecular (PCR) assay pe rformed on the [employer]00 system. Performed By: #### G FR, TSH, ADIFF, B12, ANEU, HIV, CBC, LIPID, VIDH, RPR, CMP, [id number] #### [address] [address] Chlam Source Urine Normal [facility] ([place]) Comment on above: Performed By: #### GFR, TSH, ADIFF, B12, ANEU, HIV, CBC, LIPID, VIDH, RPR, CMP, [id number] #### [address] [address] MILTM0ix 08-13-2023 GC PCR Source Urine Normal [facility] ([place]) Comment on above: Performed By: #### GFR, TSH, ADIFF, B12, ANEU, HIV, CBC, LIPID, VIDH, RPR, CMP, [id number] #### [address] [address] N. gonorrhoeae (PCR) Negative Normal Negative [facility] ([place] Comment on above: Result Comment: Molecular (PCR) assay pe rformed on the [employer] 4800 System. Performed By: #### G FR, TSH, ADIFF, B12, ANEU, HIV, CBC, LIPID, VIDH, RPR, CMP, [id number] #### [address] [address] N. gonorrhoeae Interp Normal See NG Interp N [facility] ([place] Comment on above: Result Comment: N. gonorrhoeae DNA not d etected. Specimen is presumptive negative for N. gonorrhoeae. A negative result does not preclude Neisseria gonorrhoeae infection because results depend on adequate specimen collection, absence of inhibitors, and sufficient DNA to be detected. See NG Interp N Performed By: #### G FR, TSH, ADIFF, B12, ANEU, HIV, CBC, LIPID, VIDH, RPR, CMP, [id number] #### [address] [address] RPRon 08-12-2023 Reagin Ab RPR Ql (S) Non-Reactive Normal Non-Reacti ve [facility] ([place]) Comment on above: Result Comment: The RPR test is a non-tr eponemal assay useful as an aid in the diagnosis of primary and secondary syphilis. It converts to positive generally within 2 weeks after the appearance of a lesion. This test is also useful for monitoring response to antibiotic therapy. A positive RPR screening test will be followed by the FTA ABS test. False positive RPR tests may occur in 1) patients with underlying autoimmune disorders, 2) elderly patients, 3) , and 4) other conditions with abnormal serum globulins. Performed By: #### G FR, TSH, ADIFF, B12, ANEU, HIV, CBC, LIPID, VIDH, RPR, CMP, [id number] #### [address] [address] .Auto Diffon 08-11-2023 Basophil, Absolute 0.1 10 3/mcL Normal 0.0-0.3 [facility] ([place]) Comment on above: Performed By: #### GFR, TSH, ADIFF, B12, ANEU, HIV, CBC, LIPID, VIDH, RPR, CMP, [id number] #### [address] [address] Basophils/100 WBC (Bld) 0.7 % Normal 0.0-2.5 [facility] ([place]) Comment on above: Performed By: #### GFR, TSH, ADIFF, B12, ANEU, HIV, CBC, LIPID, VIDH, RPR, CMP, [id number] #### [place] [id number] Eosinophil, Absolute 0.2 10 3/mcL Normal 0.0-0.7 [facility] ([place]) Comment on above: Performed By: #### GFR, TSH, ADIFF, B12, ANEU, HIV, CBC, LIPID, VIDH, RPR, CMP, [id number] #### [address] [address] Eosinophils/100 WBC (Bld) 1.8 % Normal 0.0-6.0 [facility] ([place]) Comment on above: Performed By: #### GFR, TSH, ADIFF, B12, ANEU, HIV, CBC, LIPID, VIDH, RPR, CMP, [id number] #### [address] [address] Lymphocyte, Absolute 4.4 10 3/mcL High 0.9-4.3 [facility] ([place]) Comment on above: Performed By: #### GFR, TSH, ADIFF, B12, ANEU, HIV, CBC, LIPID, VIDH, RPR, CMP, [id number] #### [address] [address] Lymphocytes/100 WBC (Bld) 31.5 % Normal 20.0-40.0 [facility] ([place]) Comment on above: Performed By: #### GFR, TSH, ADIFF, B12, ANEU, HIV, CBC, LIPID, VIDH, RPR, CMP, [id number] #### [address] [address] Monocyte, Absolute 0.7 10 3/mcL Normal 0.1-1.4 [facility] ([place] Comment on above: Performed By: #### GFR, TSH, ADIFF, B12, ANEU, HIV, CBC, LIPID, VIDH, RPR, CMP, [id number] #### [address] [address] Monocytes/100 WBC (Bld) 5.1 % Normal 2.0-13.0 [facility] ([place] Comment on above: Performed By: #### GFR, TSH, ADIFF, B12, ANEU, HIV, CBC, LIPID, VIDH, RPR, CMP, [id number] #### [address] [address] Neutrophils/100 WBC (Bld) 60.9 % Normal 50.0-75.0 [facility] ([place] Comment on above: Performed By: #### GFR, TSH, ADIFF, B12, ANEU, HIV, CBC, LIPID, VIDH, RPR, CMP, [id number] #### [address] [address] .GFRon 08-11-2023 GFR >60 Normal [facility] ([place] Comment on above: Result Comment: GFR Population mean for , Non- Americans Ages 20-29 = 116 mL/min/1.73 sq.m. Ages 30-39 = 107 mL/min/1.73 sq.m. Ages 40-49 = 99 mL/min/1.73 sq.m. Ages 50-59 = 93 mL/min/1.73 sq.m. Ages 60-69 = 85 mL/min/1.73 sq.m. Ages 70+ = 75 mL/min/1.73 sq.m. Chronic Kidney Disease: Less than 60 mL/min/1.73 square meters End Stage Renal Disease: Less than 15 mL/min/1.73 square meters Performed By: #### G FR, TSH, ADIFF, B12, ANEU, HIV, CBC, LIPID, VIDH, RPR, CMP, [id number] #### [address] [address] GFR Non- >60 Normal [facility] ([place]) Comment on above: Result Comment: GFR Population mean for , Non- Americans Ages 20-29 = 116 mL/min/1.73 sq.m. Ages 30-39 = 107 mL/min/1.73 sq.m. Ages 40-49 = 99 mL/min/1.73 sq.m. Ages 50-59 = 93 mL/min/1.73 sq.m. Ages 60-69 = 85 mL/min/1.73 sq.m. Ages 70+ = 75 mL/min/1.73 sq.m. Chronic Kidney Disease: Less than 60 mL/min/1.73 square meters End Stage Renal Disease: Less than 15 mL/min/1.73 square meters Performed By: #### G FR, TSH, ADIFF, B12, ANEU, HIV, CBC, LIPID, VIDH, RPR, CMP, [id number] #### [place] [address] .NEUABSon 08-11-2023 Neutrophil, Absolute 8.4 10 3/mcL High 2.3-8.1 [facility] ([place]) Comment on above: Performed By: #### GFR, TSH, ADIFF, B12, ANEU, HIV, CBC, LIPID, VIDH, RPR, CMP, [id number] #### [place] [id number] B12on 08-11-2023 Cobalamin (Vitamin B12) [Mass/Vol] 477 pg/mL Normal 211-911 [facility] ([place]) Comment on above: Performed By: #### GFR, TSH, ADIFF, B12, ANEU, HIV, CBC, LIPID, VIDH, RPR, CMP, [id number] #### [place] [id number] CBCon 08-11-2023 Erythrocyte distribution width (RBC) [Ratio] 14.0 % Normal 11.5-15.5 [facility] ([place] Comment on above: Performed By: #### GFR, TSH, ADIFF, B12, ANEU, HIV, CBC, LIPID, VIDH, RPR, CMP, [id number] #### [place] [address] Hematocrit (Bld) [Volume fraction] 43.9 % Normal 34.0-46.0 [facility] ([place] Comment on above: Performed By: #### GFR, TSH, ADIFF, B12, ANEU, HIV, CBC, LIPID, VIDH, RPR, CMP, [id number] #### [place] [address] Hgb 14.5 G/dL Normal 12.0-16.0 [facility] ([place] Comment on above: Performed By: #### GFR, TSH, ADIFF, B12, ANEU, HIV, CBC, LIPID, VIDH, RPR, CMP, [id number] #### [place] [address] MCH (RBC) [Entitic mass] 31.4 pg Normal 27.0-33.0 [facility] ([place] Comment on above: Performed By: #### GFR, TSH, ADIFF, B12, ANEU, HIV, CBC, LIPID, VIDH, RPR, CMP, [id number] #### [place] [address] MCHC 33.1 G/dL Normal 32.0-36.0 [facility] ([place] Comment on above: Performed By: #### GFR, TSH, ADIFF, B12, ANEU, HIV, CBC, LIPID, VIDH, RPR, CMP, [id number] #### [place] [address] MCV (RBC) [Entitic vol] 95.0 fL Normal 80.0-99.0 [facility] ([place]) Comment on above: Performed By: #### GFR, TSH, ADIFF, B12, ANEU, HIV, CBC, LIPID, VIDH, RPR, CMP, [id number] #### [place] [address] Platelet 434 10 3/mcL Normal 150-450 [facility] ([place] Comment on above: Performed By: #### GFR, TSH, ADIFF, B12, ANEU, HIV, CBC, LIPID, VIDH, RPR, CMP, [id number] #### [place] [address] Platelet mean volume (Bld) [Entitic vol] 7.8 fL Normal 6.6-10.5 [facility] ([place] Comment on above: Performed By: #### GFR, TSH, ADIFF, B12, ANEU, HIV, CBC, LIPID, VIDH, RPR, CMP, [id number] #### [place] [address] RBC 4.62 10 6/mcL Normal 4.10-5.30 [facility] ([place] Comment on above: Performed By: #### GFR, TSH, ADIFF, B12, ANEU, HIV, CBC, LIPID, VIDH, RPR, CMP, [id number] #### [place] [address] WBC 13.8 10 3/mcL High 4.5-10.8 [facility] ([place] Comment on above: Performed By: #### GFR, TSH, ADIFF, B12, ANEU, HIV, CBC, LIPID, VIDH, RPR, CMP, [id number] #### [place] [address] CMPon 08-11-2023 Albumin Level 4.5 G/dL Normal 3.2-4.8 [facility] ([place]) Comment on above: Performed By: #### GFR, TSH, ADIFF, B12, ANEU, HIV, CBC, LIPID, VIDH, RPR, CMP, [id number] #### [place] [address] Albumin/Globuli n [Mass ratio] 1.5 {ratio} Normal 0.9-1.6 [facility] ([place]) Comment on above: Performed By: #### GFR, TSH, ADIFF, B12, ANEU, HIV, CBC, LIPID, VIDH, RPR, CMP, [id number] #### [place] [address] ALP [Catalytic activity/Vol] 71 U/L Normal 38-126 [facility] ([place] Comment on above: Performed By: #### GFR, TSH, ADIFF, B12, ANEU, HIV, CBC, LIPID, VIDH, RPR, CMP, [id number] #### [address] [address] ALT/SGPT <8 Low 10-49 [facility] ([place] Comment on above: Performed By: #### GFR, TSH, ADIFF, B12, ANEU, HIV, CBC, LIPID, VIDH, RPR, CMP, [id number] #### [place] [id number] AST [Catalytic activity/Vol] 14 U/L Normal 8-34 [facility] ([place] Comment on above: Performed By: #### GFR, TSH, ADIFF, B12, ANEU, HIV, CBC, LIPID, VIDH, RPR, CMP, [id number] #### [place] [id number] Bili Total 0.50 mg/dL Normal 0.20-1.20 [facility] ([place]) Comment on above: Result Comment: Use of this assay is not recommended for patients undergoing treatment with eltrombopag due to the potential for falsely elevated results. Performed By: #### G FR, TSH, ADIFF, B12, ANEU, HIV, CBC, LIPID, VIDH, RPR, CMP, [id number] #### [place] [id number] BUN/Creatinine Ratio 16.7 ratio Normal 10.0-22.0 [facility] ([place] Comment on above: Performed By: #### GFR, TSH, ADIFF, B12, ANEU, HIV, CBC, LIPID, VIDH, RPR, CMP, [id number] #### [place] [id number] Calcium [Mass/Vol] 10.1 mg/dL Normal 8.7-10.4 [facility] ([place] Comment on above: Performed By: #### GFR, TSH, ADIFF, B12, ANEU, HIV, CBC, LIPID, VIDH, RPR, CMP, [id number] #### [address] [address] Chloride [Moles/Vol] 108 mmol/L Normal 98-110 [facility] ([place] Comment on above: Performed By: #### GFR, TSH, ADIFF, B12, ANEU, HIV, CBC, LIPID, VIDH, RPR, CMP, [id number] #### [address] [address] CO2 [Moles/Vol] 26 mmol/L Normal 22-32 [facility] ([place] Comment on above: Performed By: #### GFR, TSH, ADIFF, B12, ANEU, HIV, CBC, LIPID, VIDH, RPR, CMP, [id number] #### [address] [address] Creatinine [Mass/Vol] 0.72 mg/dL Normal 0.50-1.20 [facility] ([place] Comment on above: Performed By: #### GFR, TSH, ADIFF, B12, ANEU, HIV, CBC, LIPID, VIDH, RPR, CMP, [id number] #### [address] [address] Electrolyte Balance 6.0 mEq/L Normal 4.0-15.0 [facility] ([place] Comment on above: Performed By: #### GFR, TSH, ADIFF, B12, ANEU, HIV, CBC, LIPID, VIDH, RPR, CMP, [id number] #### [address] [address] Globulin 3.0 G/dL Normal 1.5-3.8 [facility] ([place] Comment on above: Performed By: #### GFR, TSH, ADIFF, B12, ANEU, HIV, CBC, LIPID, VIDH, RPR, CMP, [id number] #### [address] [address] Glucose [Mass/Vol] 78 mg/dL Normal 70-110 [facility] ([place] Comment on above: Performed By: #### GFR, TSH, ADIFF, B12, ANEU, HIV, CBC, LIPID, VIDH, RPR, CMP, [id number] #### [address] [address] Potassium [Moles/Vol] 4.1 mmol/L Normal 3.5-5.0 [facility] ([place] Comment on above: Performed By: #### GFR, TSH, ADIFF, B12, ANEU, HIV, CBC, LIPID, VIDH, RPR, CMP, [id number] #### [address] [address] Sodium [Moles/Vol] 140 mmol/L Normal 136-145 [facility] ([place] Comment on above: Performed By: #### GFR, TSH, ADIFF, B12, ANEU, HIV, CBC, LIPID, VIDH, RPR, CMP, [id number] #### [place] [id number] Total Protein 7.5 G/dL Normal 5.7-8.2 [facility] ([place]) Comment on above: Result Comment: Note - New Reference Karmen taylor in effect 12/31/19 Performed By: #### G FR, TSH, ADIFF, B12, ANEU, HIV, CBC, LIPID, VIDH, RPR, CMP, [id number] #### [address] [address] Urea nitrogen [Mass/Vol] 12.0 mg/dL Normal 8.0-22.0 [facility] ([place] Comment on above: Performed By: #### GFR, TSH, ADIFF, B12, ANEU, HIV, CBC, LIPID, VIDH, RPR, CMP, [id number] #### [place] [id number] HIVon 08-11-2023 HIV 1/2 Ab Non-Reactive Normal Non-Reacti ve [facility] ([place] Comment on above: Result Comment: Specimen is negative for anti-HIV-1 and anti-HIV-2. Performed By: #### G FR, TSH, ADIFF, B12, ANEU, HIV, CBC, LIPID, VIDH, RPR, CMP, [id number] #### [address] [address] LIPIDon 08-11-2023 Cholesterol [Mass/Vol] 199 mg/dL Normal 50-199 [facility] ([place]) Comment on above: Result Comment: Cholesterol Reference In terval: Less than 200 Desirable 200-239 Borderline high risk 240 and above High risk Performed By: #### G FR, TSH, ADIFF, B12, ANEU, HIV, CBC, LIPID, VIDH, RPR, CMP, [id number] #### [address] [address] Cholesterol in HDL [Mass/Vol] 49 mg/dL Normal 40-59 [facility] ([place] Comment on above: Performed By: #### GFR, TSH, ADIFF, B12, ANEU, HIV, CBC, LIPID, VIDH, RPR, CMP, [id number] #### [address] [address] Cholesterol in LDL [Mass/Vol] 136 mg/dL High 0-129 [facility] ([place] Comment on above: Performed By: #### GFR, TSH, ADIFF, B12, ANEU, HIV, CBC, LIPID, VIDH, RPR, CMP, [id number] #### [address] [address] Triglyceride [Mass/Vol] 71 mg/dL Normal 3-149 [facility] ([place] Comment on above: Performed By: #### GFR, TSH, ADIFF, B12, ANEU, HIV, CBC, LIPID, VIDH, RPR, CMP, [id number] #### [address] [address] TSHon 08-11-2023 TSH 1.576 mIU/mL Normal 0.550-4.78 0 [facility] ([place]) Comment on above: Result Comment: Note - New Reference Karmen taylor in effect 12/31/19 Performed By: #### G FR, TSH, ADIFF, B12, ANEU, HIV, CBC, LIPID, VIDH, RPR, CMP, [id number] #### [address] [address] VIDHon 08-11-2023 Vit. D 25-Hydroxy 27.7 ng/mL Normal [facility] ([place]) Comment on above: Result Comment: Interpretive Values Base d on Total 25(OH)D: Severe Deficiency <20 ng/mL Mild to Moderate Deficiency 20-30 ng/mL Optimum Levels 30-100 ng/mL Toxicity Possible >100 ng/mL Performed By: #### G FR, TSH, ADIFF, B12, ANEU, HIV, CBC, LIPID, VIDH, RPR, CMP, [id number] #### [place] [id number] HSVABon 08-23-2022 HSV IgM Qualitative Negative Normal Negative [facility] ([place]) Comment on above: Result Comment: HSV IgM antibody test is typically used as an aid in diagnosis of primary HSV infection. A negative HSV IgM result cannot exclude recent primary HSV infection if the specimen collected within 7-10 days after onset of signs and symptoms. Should suspect lesions be present, HSV PCR is strongly recommended, if possible. Otherwise, repeat serology using both HSV-1 IgG and HSV-2 IgG after 3-6 weeks is suggested. Performed By: [place] [address] Principal Secretary: Lars Chand III, M.D. CLIA#: [id number] Performed By: #### G FR, TSH, ADIFF, B12, ANEU, HIV, CBC, LIPID, VIDH, RPR, CMP, [id number] #### [place] [address] [id number] 08-20-2022 HSV IgG 1 Qualitative Positive Abnormal Negative [facility] ([place]) Comment on above: Result Comment: The result suggests rece nt or past infection with HSV-1. Performed By: [place] [address] Principal Secretary: Lars Chand III, M.D. CLIA#: [id number] Performed By: #### G FR, TSH, ADIFF, B12, ANEU, HIV, CBC, LIPID, VIDH, RPR, CMP, [id number] #### [place] [address] HSV IgG 2 Qualitative Negative Normal Negative [facility] ([place]) Comment on above: Result Comment: No evidence of past hist ory of HSV-2 infection. Negative result cannot exclude HSV-2 infection if the specimen collected 4-6 weeks after a primary episode of HSV-2 infection. Early institution of antiviral agents may delay or abrogate specific humoral response. Performed By: [facility] [address] [place] [address] Principal Secretary: Lars Chand III, M.D. CLIA#: [id number] Performed By: #### G FR, TSH, ADIFF, B12, ANEU, HIV, CBC, LIPID, VIDH, RPR, CMP, [id number] #### [facility] [address] [place] [address] Basic metabolic 2000 panelon 08-19-2022 Anion gap [Moles/Vol] 3 mmol/L Low 5-16 [facility] Comment on above: Order Comment: Specimen Type: BLOOD SPEC IMENOrdering Facility: [facility] Address: [address] Performed By: #### 2 4320-07, 1987-10 ####[facility] LABORATORYCLIA [id number] [place] [address] [place] Calcium [Mass/Vol] 9.2 mg/dL Normal 8.5-10.5 [facility] Comment on above: Order Comment: Specimen Type: BLOOD SPEC IMENOrdering Facility: [facility] Address: [address] Performed By: #### 2 4320-07, 1987-10 ####[facility] LABORATORYCLIA [id number] [place] [address] [place] Chloride [Moles/Vol] 107 mmol/L Normal 98-107 [facility] Comment on above: Order Comment: Specimen Type: BLOOD SPEC IMENOrdering Facility: [facility] Address: [address] [place] [address] Performed By: #### 2 4320-07, 1987-10 ####[facility] LABORATORYCLIA [id number] [place] [address] [place] CO2 [Moles/Vol] 29 mmol/L Normal 21-32 [facility] Comment on above: Order Comment: Specimen Type: BLOOD SPEC IMENOrdering Facility: [facility] Address: [address] [place] [address] Performed By: #### 2 43206-13, 1987-10 ####[facility] LABORATORYCLIA [id number] [address] [place] Creatinine [Mass/Vol] 0.67 mg/dL Normal 0.51-0.95 [facility] Comment on above: Order Comment: Specimen Type: BLOOD SPEC IMENOrdering Facility: [facility] Address: [address] [address] Result Comment: Nina ents receiving either N-Acetylcysteine (NAC) or Metamizole prior to venipuncture, may have falsely depressed results. Performed By: #### 2 4320-07, 1987-10 ####[facility] LABORATORYCLIA [id number] [address] ESTIMATED GLOMERULAR FILTRATION RATE 126 mL/min/1.73m??? Normal >=60 [facility] Comment on above: Order Comment: Specimen Type: BLOOD SPEC IMENOrdering Facility: [facility] Address: [address] [place] [address] Result Comment: Shaista mated Glomerular Filtration Rate (eGFR) is calculated using the 2020 CKD-EPI creatinine equation. This equation utilizes serum creatinine, sex, and age as parameters. The creatinine assay has traceable calibration to isotope dilution-mass spectrometry. Refer to KDIGO guidelines for clinical interpretation. In patients with unstable renal function, e.g. those with acute kidney injury, the eGFR may not accurately reflect actual GFR. Performed By: #### 2 4320-07, 1987-10 ####[facility] LABORATORYCLIA [id number] [place] [address] [place] Glucose [Mass/Vol] 119 mg/dL High 70-100 [facility] Comment on above: Order Comment: Specimen Type: BLOOD SPEC IMENOrdering Facility: [facility] Address: [address] [place] [address] Result Comment: The [place] Diabetes Association (ADA) provides guidance for cutoff values for fasting glucose and random glucose. The ADA defines fasting as no caloric intake for at least 8 hours. Fasting plasma glucose results between 100 to 125 mg/dL indicate increased risk for diabetes (prediabetes). Fasting plasma glucose results greater than or equal to 126 mg/dL meet the criteria for diagnosis of diabetes. In the absence of unequivocal hyperglycemia, results should be confirmed by repeat testing. In a patient with classic symptoms of hyperglycemia or hyperglycemic crisis, random plasma glucose results greater than or equal to 200 mg/dL meet the criteria for diagnosis of diabetes. Reference: Standards of Medical Care in Diabetes 2016, [place] Diabetes Association. Diabetes Care. 2016.39(Suppl 1). Results may be falsely elevated after the administration of Sulfapyridine. Results may be falsely depressed after the administration of Sulfasalazine. Performed By: #### 2 4320-07, 1987-10 ####[facility] LABORATORYCLIA [id number] [place] [address] [place] Potassium [Moles/Vol] 4.2 mmol/L Normal 3.5-5.1 [facility] Comment on above: Order Comment: Specimen Type: BLOOD SPEC IMENOrdering Facility: [facility] Address: [address] [place] [address] Performed By: #### 2 1987-10 ####[facility] LABORATORYCLIA [id number] [place] [address] [place] Sodium [Moles/Vol] 139 mmol/L Normal 136-145 [facility] Comment on above: Order Comment: Specimen Type: BLOOD SPEC IMENOrdering Facility: [facility] Address: [address] [place] [address] Performed By: #### 2 1987-10 ####[facility] LABORATORYCLIA [id number] [place] [address] [place] Urea nitrogen [Mass/Vol] 13 mg/dL Normal 7-26 [facility] Comment on above: Order Comment: Specimen Type: BLOOD SPEC IMENOrdering Facility: [facility] Address: [address] [place] [address] Performed By: #### 2 1987-10 ####[facility] LABORATORYCLIA [id number] [place] [address] [place] CBC W Auto Differential pane l (Bld)on 08-19-2022 Basophils (Bld) [#/Vol] 0.06 10*3/uL Normal <0.11 [facility] Comment on above: Order Comment: Specimen Type: BLOOD SPEC IMENOrdering Facility: [facility] Address: [address] [place] [address] Performed By: #### 5 7021-8 ####[facility] LABORATORYCLIA [id number] [address] [place] Basophils/100 WBC (Bld) 0.5 % Normal [facility] Comment on above: Order Comment: Specimen Type: BLOOD SPEC IMENOrdering Facility: [facility] Address: [address] [place] [address] Performed By: #### 5 7021-8 ####[facility] LABORATORYCLIA [id number] [address] Differential cell count method Nom (Bld) Auto Normal [facility] Comment on above: Order Comment: Specimen Type: BLOOD SPEC IMENOrdering Facility: [facility] Address: [address] [place] [address] Performed By: #### 5 7021-8 ####[facility] LAB[facility]ATORYCLIA [id number] [address] [place] Eosinophils (Bld) [#/Vol] 0.15 10*3/uL Normal <0.46 [facility] Comment on above: Order Comment: Specimen Type: BLOOD SPEC IMENOrdering Facility: [facility] Address: [address] [place] [place] [address] Performed By: #### 5 7021-8 ####[facility] LABORATORYCLIA [id number] [address] Eosinophils/100 WBC (Bld) 1.4 % Normal [facility] Comment on above: Order Comment: Specimen Type: BLOOD SPEC IMENOrdering Facility: [facility] Address: [address] [place] [address] Performed By: #### 5 7021-8 ####[facility]ATORYCLIA [id number] [place] [address] [place] Erythrocyte distribution width (RBC) [Ratio] 13.3 % Normal 11.5-15.0 [facility] Comment on above: Order Comment: Specimen Type: BLOOD SPEC IMENOrdering Facility: [facility] Address: [address] [place] [address] Performed By: #### 5 7021-8 ####[facility] LABORATORYCLIA [id number] [place] [address] [place] Hematocrit (Bld) [Volume fraction] 40.2 % Normal 36.0-46.0 [facility] Comment on above: Order Comment: Specimen Type: BLOOD SPEC IMENOrdering Facility: [facility] Address: [address] [place] [address] Performed By: #### 5 7021-8 ####[facility] LABORATORYCLIA [id number] [address] [place] Hemoglobin (Bld) [Mass/Vol] 13.0 g/dL Normal 11.5-15.5 [facility] Comment on above: Order Comment: Specimen Type: BLOOD SPEC IMENOrdering Facility: [facility] Address: [address] [place] [address] Performed By: #### 5 7021-8 ####[facility] LABORATORYCLIA [id number] [place] [address] [place] Immature granulocytes (Bld) [#/Vol] 0.04 10*3/uL Normal <0.10 [facility] Comment on above: Order Comment: Specimen Type: BLOOD SPEC IMENOrdering Facility: [facility] Address: [address] [place] [address] Performed By: #### 5 7021-8 ####[facility] LABORATORYCLIA [id number] [address] [place] Immature granulocytes/10 0 WBC (Bld) 0.4 % Normal [facility] Comment on above: Order Comment: Specimen Type: BLOOD SPEC IMENOrdering Facility: [facility] Address: [address] [address] Performed By: #### 5 7021-8 ####[facility] LABORATORYCLIA [id number] [address] [place] Lymphocytes (Bld) [#/Vol] 2.80 10*3/uL Normal 1.00-4.00 [facility] Comment on above: Order Comment: Specimen Type: BLOOD SPEC IMENOrdering Facility: [facility] Address: [address] [place] [address] Performed By: #### 5 7021-8 ####[facility] LABORATORYCLIA [id number] [address] [place] Lymphocytes/100 WBC (Bld) 25.6 % Normal [facility] Comment on above: Order Comment: Specimen Type: BLOOD SPEC IMENOrdering Facility: [facility] Address: [address] [place] [address] Performed By: #### 5 7021-8 ####[facility] LABORATORYCLIA [id number] [address] [place] MCH (RBC) [Entitic mass] 30.1 pg Normal 26.0-34.0 [facility] Comment on above: Order Comment: Specimen Type: BLOOD SPEC IMENOrdering Facility: [facility] Address: [address] [address] Performed By: #### 5 7021-8 ####[facility] LABORATORYCLIA [id number] [address] [place] MCHC (RBC) [Mass/Vol] 32.3 g/dL Normal 30.5-36.0 [facility] Comment on above: Order Comment: Specimen Type: BLOOD SPEC IMENOrdering Facility: [facility] Address: [address] [address] Performed By: #### 5 7021-8 ####[facility]ATORYCLIA [id number] [address] [place] MCV (RBC) [Entitic vol] 93.1 fL Normal 80.0-100.0 [facility] Comment on above: Order Comment: Specimen Type: BLOOD SPEC IMENOrdering Facility: [facility] Address: [address] [place] [address] Performed By: #### 5 7021-8 ####[facility] LABORATORYCLIA [id number] [place] [address] [place] Monocytes (Bld) [#/Vol] 0.57 10*3/uL Normal <0.87 [facility] Comment on above: Order Comment: Specimen Type: BLOOD SPEC IMENOrdering Facility: [facility] Address: [address] [place] [address] Performed By: #### 5 7021-8 ####[facility]ATORYCLIA [id number] [address] [place] Monocytes/100 WBC (Bld) 5.2 % Normal [facility] Comment on above: Order Comment: Specimen Type: BLOOD SPEC IMENOrdering Facility: [facility] Address: [address] [place] [address] Performed By: #### 5 7021-8 ####[facility] LABORATORYCLIA [id number] [place] [address] [place] Neutrophils (Bld) [#/Vol] 7.31 10*3/uL Normal 1.45-7.50 [facility] Comment on above: Order Comment: Specimen Type: BLOOD SPEC IMENOrdering Facility: [facility] Address: [address] [place] [address] Performed By: #### 5 7021-8 ####[facility] LABORATORYCLIA [id number] [place] [address] [place] Neutrophils/100 WBC (Bld) 66.9 % Normal [facility] Comment on above: Order Comment: Specimen Type: BLOOD SPEC IMENOrdering Facility: [facility] Address: [address] [address] Performed By: #### 5 7021-8 ####[facility]ATORYCLIA [id number] [place] [address] [place] Nucleated RBC (Bld) [#/Vol] 10*3/uL Normal <0.01 [facility] Comment on above: Order Comment: Specimen Type: BLOOD SPEC IMENOrdering Facility: [facility] Address: [address] [place] [address] Performed By: #### 5 7021-8 ####[facility]ORATORYCLIA [id number] [place] [address] [place] Nucleated RBC/100 WBC (Bld) [Ratio] 0.0 /100 WBC Normal [facility] Comment on above: Order Comment: Specimen Type: BLOOD SPEC IMENOrdering Facility: [facility] Address: [address] [place] [address] Performed By: #### 5 7021-8 ####[facility]ATORYCLIA [id number] [place] [address] [place] Platelet mean volume (Bld) [Entitic vol] 8.6 fL Low 9.0-12.7 [facility] Comment on above: Order Comment: Specimen Type: BLOOD SPEC IMENOrdering Facility: [facility] Address: [address] [place] [address] Performed By: #### 5 7021-8 ####[facility]ATORYCLIA [id number] [place] [address] [place] Platelets (Bld) [#/Vol] 396 10*3/uL Normal 150-400 [facility] Comment on above: Order Comment: Specimen Type: BLOOD SPEC IMENOrdering Facility: [facility] Address: [address] [place] [address] Performed By: #### 5 7021-8 ####[facility] LABORATORYCLIA [id number] [place] [address] [place] RBC (Bld) [#/Vol] 4.32 10*6/uL Normal 3.90-5.20 [facility] Comment on above: Order Comment: Specimen Type: BLOOD SPEC IMENOrdering Facility: [facility] Address: [place] [address] Performed By: #### 5 7021-8 ####[facility] LABORATORYCLIA [id number] [place] [id number] [place] WBC (Bld) [#/Vol] 10.93 10*3/uL Normal 3.70-11.00 [facility] Comment on above: Order Comment: Specimen Type: BLOOD SPEC IMENOrdering Facility: [facility] Address: [address] Performed By: #### 5 7021-8 ####[facility] LABORATORYCLIA [id number] [place] [id number] [place] CRP SerPl-mCncon 08-19-2022 CRP [Mass/Vol] 1.6 mg/dL High <1.0 [facility] Comment on above: Order Comment: Specimen Type: BLOOD SPEC IMENOrdering Facility: [facility] Address: [address] Performed By: #### 2 4321-2, 1987-10 ####[facility] LABORATORYCLIA [id number] [place] [address] [place] CT ORBITS W IVCONon 08-20-[address] ORBITS W IVCON * * *Final Report* * * DATE OF EXAM: Aug 19 2022 6:31AM [facility] 0014 - CT ORBITS W IVCON / PROCEDURE REASON: Ocular pain * * * * Physician Interpretation * * * * EXAMINATION: CT ORBITS W IVCON CLINICAL HISTORY: Ocular pain - Orbital Cellulitis - Ocular pain - TECHNIQUE: Axial contrast enhanced CT images of the orbits with coronal and sagittal reconstructions. Dose-Length Product (DLP): 103.78 mGy*cm CT Dose Reduction Employed: Automated exposure control(AEC) and iterative recon COMPARISON: None. RESULT: Symmetric appearance of the bilateral lens and anterior chambers. Symmetric appearance of the bilateral globes without contour deformity or abnormality to suggest injury or rupture. No asymmetric thickening or hyperattenuation of the sclera or retina. No findings to suggest retinal detachment. No radiopaque foreign body. No proptosis. Symmetric appearance of the bilateral extraocular muscles and optic nerves. Symmetric appearance of the bilateral visualized opacified ophthalmic arteries and superior ophthalmic veins. Symmetric appearance of venous contamination of the bilateral cavernous sinuses. No breakdown of the lamina papyracea. No adjacent paranasal sinus disease/mucosal thickening. No stranding or fluid within the retrobulbar space. No significant preseptal soft tissue stranding. Minimal nonspecific prominence of the nasopharyngeal mucosa and lymphatic tissue of Waldeyer's ring. No airway effacement. Symmetric appearance of the bilateral salivary glands. Symmetric appearance of the bilateral included muscles of mastication. No filling defect of the opacified dural venous sinuses or jugular veins. Normal appearance of the included extracranial carotid and vertebral arteries within limits of venous timing. No acute fracture of the included base. No large periapical lucencies of the included maxillary teeth. IMPRESSION: No findings to suggest orbital cellulitis. Otherwise, symmetric appearance of the bilateral globes and orbits within soft tissue limitations of CT. Consider further evaluation with follow-up MRI orbits with and without contrast if clinically warranted based on exam findings. Liquor Inspector: CARISA Transcribe Date/Time: Aug 19 2022 6:33A Dictated by : VANDA CRAIG MD This examination was interpreted and the report reviewed and electronically signed by: VANDA CRAIG MD on Aug 19 2022 6:44AM EST [id number] [facility] ED NOTEon 08-19-2022 ED NOTE HNO ID: [id number] Author: Griselda Owen RN Service: ? Author Type: Registered Nurse Type: ED Notes Filed: 08/19/2022 7:25 AM Note Text: Report to Aguilar MUNOZ [facility] ED NOTE HNO ID: [id number] Author: Griselda Owen RN Service: ? Author Type: Registered Nurse Type: ED Notes Filed: 08/19/2022 6:18 AM Note Text: Patient brought to CT [facility] ED NOTE HNO ID: [id number] Author: Griselda Owen RN Service: ? Author Type: Registered Nurse Type: ED Notes Filed: 08/19/2022 4:12 AM Note Text: Patient brought to ED room at this time. [facility] ED PROV NOTEon 08-19-2022 ED PROV NOTE HNO ID: [id number] Author: Vahe Hernandez MD Service: Emergency Medicine Author Type: Physician Type: ED Provider Notes Filed: 08/19/2022 8:03 AM Note Text: ED Provider Note Patient Name: Anika Metzger : 2000 SERVICE DATE: 08/19/22 History Patient presents with: Eye Pain: Right eye pain x 1 week was seen here a few days ago and referred to facility practice specialist but hasnt seen one yet. Continues to have eye pain radiating to her left side of her head and down her neck. Tearful and wearing eye patch in triage. Blurred vision Patient presents complaining of right eye pain. She is having photosensitivity. Somewhat when she moves her eye. She states it feels somewhat swollen. Is been going on for a week. She was here several days ago. She been taking Fioricet which helps during the day but at night the pain comes back. She is trying to get referred to ophthalmology and get in with her primary care doctor but this has not happened yet. Denies weakness numbness or tingling. Denies fever chills. Has some blurry vision. No history of migraines. She had an essentially normal work-up other than some nonspecific elevation of the CRP and white blood cell count she was to the other day. The pain radiates into the side of her head and down as well. No past medical history on file. No past surgical history on file. No family history on file. Social History Tobacco Use Smoking status: Former Types: Cigarettes Passive exposure: Never Smokeless tobacco: Former Vaping Use Vaping Use: current everyday user Substance and Sexual Activity Alcohol use: Not Currently Drug use: Not on file Sexual activity: Not on file ALLERGIES No Known Allergies Review of Systems All other systems reviewed and are negative. Physical Exam Vitals [08/19/22 0408] BP Pulse Temp Temp src Resp SpO2 Weight Height 134/87 77 36.7 ?C (98.1 ?F) Oral 15 98 % 86.2 kg (190 lb) 1.499 m (4' 11) Physical Exam Vitals and nursing note reviewed. HENT: Head: Normocephalic. Nose: Nose normal. Mouth/Throat: Mouth: Mucous membranes are moist. Pharynx: Oropharynx is clear. Eyes: Pupils: Pupils are equal, round, and reactive to light. Comments: Conjunctive is clear, no scleral icterus, no clouding of the cornea, no hyphema, no dye uptake with fluorescein, she has had pain improvement with tetracaine. No hypopyon or hyphema. She does have some pain reproducible when she moves her eye. No appreciable eyelid swelling at this time no periorbital cellulitis. She has 20/25 vision on the right eye 2020 vision in the left eye. Her pressures are 15-20 on the right eye, 20-22 on the left eye. Cardiovascular: Rate and Rhythm: Normal rate and regular rhythm. Pulses: Normal pulses. Pulmonary: Effort: Pulmonary effort is normal. Breath sounds: Normal breath sounds. Abdominal: General: Abdomen is flat. Tenderness: There is no abdominal tenderness. Musculoskeletal: General: No tenderness. Normal range of motion. Cervical back: Normal range of motion. Skin: General: Skin is warm. Capillary Refill: Capillary refill takes less than 2 seconds. Neurological: General: No focal deficit present. Mental Status: She is alert and oriented to person, place, and time. Sensory: No sensory deficit. Motor: No weakness. Psychiatric: Mood and Affect: Mood normal. Behavior: Behavior normal. Diagnostic Testing ED Labs Ordered and Reviewed CBC + DIFF - Abnormal; Notable for the following components: Result Value Ref Range MPV 8.6 (*) 9.0 - 12.7 fL All other components within normal limits Narrative: This is an appended report. These results have been appended to a previously verified report. C-REACTIVE PROTEIN (CRP) - Abnormal; Notable for the following components: CRP 1.6 (*) <1.0 mg/dL All other components within normal limits BASIC METABOLIC PNL - Abnormal; Notable for the following components: Glucose 119 (*) 70 - 100 mg/dL Anion Gap 3 (*) 5 - 16 mmol/L All other components within normal limits Procedures ED Course / Clinical Impression Clinical Impressions as of 08/19/22 0803 Pain of right eye MDM / Disposition / Plan Each lab and radiology result has been reviewed, and all lab results have been compared to available recent prior values. A summary of medications ordered and administered in the treatment of this patient is detailed below: Medications iv contrast (radiology procedure) (has no administration in time range) tetracaine (PF) 0.5 % 1 Drop (OPTICAINE) (1 Drop RIGHT EYE Given by LIP 08/19/22 043) fluorescein 1 mg 1 Strip (FLUORETS) (1 Strip RIGHT EYE Given by LIP 08/19/22 043) metoclopramide HCl 10 mg injection (REGLAN) (10 mg INTRAVENOUS Given 08/19/22 0500) diphenhydrAMINE 50 mg injection (BENADRYL) (50 mg INTRAVENOUS Given 08/19/22 0500) keTORolac 15 mg injection (TORADOL) (15 mg INTRAVENOUS Given 08/19/22 0728) methylPREDNISolone (more content not included)... [facility] HEPACon 08-19-2022 Hep A IgM Ab Non-Reactive Normal Non-Reacti [facility] ([place]) Comment on above: Performed By: #### GFR, TSH, ADIFF, B12, ANEU, HIV, CBC, LIPID, VIDH, RPR, CMP, [id number] #### [place] [address] Hep A IgM Ab Int [facility] ([place]) Comment on above: Result Comment: No serological evidence of a current Hepatitis A infection. See Interp Performed By: #### G FR, TSH, ADIFF, B12, ANEU, HIV, CBC, LIPID, VIDH, RPR, CMP, [id number] #### [address] [address] Hep B Core IgM Ab Non-Reactive [place] Non-Reacti [facility] ([place]) Comment on above: Performed By: #### GFR, TSH, ADIFF, B12, ANEU, HIV, CBC, LIPID, VIDH, RPR, CMP, [id number] #### [place] [id number] Hep B Core IgM Ab Int [facility] ([place]) Comment on above: Result Comment: Samples with a value < 0 .80 Index are considered nonreactive (negative) for IgM antibodies to hepatitis B core antigen. See Interp Performed By: #### G FR, TSH, ADIFF, B12, ANEU, HIV, CBC, LIPID, VIDH, RPR, CMP, [id number] #### [place] [address] Hep C Ab Non-Reactive Normal Non-Reacti [facility] ([place]) Comment on above: Performed By: #### GFR, TSH, ADIFF, B12, ANEU, HIV, CBC, LIPID, VIDH, RPR, CMP, [id number] #### [place] [address] Hep C Ab Int [facility] ([place]) Comment on above: Result Comment: Nonreactive: Samples wit h a value < 0.80 are considered nonreactive (negative) for antibodies to HCV. A negative test result does not exclude the possibility of exposure to or infection with HCV. HCV antibodies may be undetectable in some stages of the infection and in some clinical conditions. See Interp Performed By: #### G FR, TSH, ADIFF, B12, ANEU, HIV, CBC, LIPID, VIDH, RPR, CMP, [id number] #### [place] [address] Hep B Surf Ag Non-Reactive Normal Non-Reacti [facility] ([place]) Comment on above: Performed By: #### GFR, TSH, ADIFF, B12, ANEU, HIV, CBC, LIPID, VIDH, RPR, CMP, [id number] #### [place] [address] HIVon 08-19-2022 HIV 1/2 Ab Normal [facility] ([place] Comment on above: Result Comment: Non-Reactive Specimen is negative for anti-HIV-1 and anti-HIV-2. Performed By: #### G FR, TSH, ADIFF, B12, ANEU, HIV, CBC, LIPID, VIDH, RPR, CMP, [id number] #### [place] [address] RPRon 08-19-2022 Reagin Ab RPR Ql (S) Non-Reactive Normal [facility] ([place]) Comment on above: Result Comment: The RPR test is a non-tr eponemal assay useful as an aid in the diagnosis of primary and secondary syphilis. It converts to positive generally within 2 weeks after the appearance of a lesion. This test is also useful for monitoring response to antibiotic therapy. A positive RPR screening test will be followed by the FTA ABS test. False positive RPR tests may occur in 1) patients with underlying autoimmune disorders, 2) elderly patients, 3) , and 4) other conditions with abnormal serum globulins. Performed By: #### G FR, TSH, ADIFF, B12, ANEU, HIV, CBC, LIPID, VIDH, RPR, CMP, [id number] #### [facility] [address] [place] [address] CBC W Auto Differential pane l (Bld)on 08-16-2022 Basophils (Bld) [#/Vol] 0.06 10*3/uL Normal <0.11 [facility] Comment on above: Order Comment: Specimen Type: BLOOD SPEC IMEN Ordering Facility: [facility] Address: [address] [place] [address] Performed By: #### 5 7021-8, 4537-7 #### [facility] CLIA [id number] [address] [place] [address] [place] Basophils/100 WBC (Bld) 0.5 % Normal [facility] Comment on above: Order Comment: Specimen Type: BLOOD SPEC IMEN Ordering Facility: [facility] Address: [address] [place] [address] Performed By: #### 5 7021-8, 4537-7 #### [facility] CLIA [id number] [address] [place] [address] [place] Differential cell count method Nom (Bld) Auto Normal [facility] Comment on above: Order Comment: Specimen Type: BLOOD SPEC IMEN Ordering Facility: [facility] Address: [address] [place] [address] Performed By: #### 5 7021-8, 4537-7 #### [facility] CLIA [id number] [address] [place] [address] [place] Eosinophils (Bld) [#/Vol] 0.16 10*3/uL Normal <0.46 [facility] Comment on above: Order Comment: Specimen Type: BLOOD SPEC IMEN Ordering Facility: [facility] Address: [address] [place] [address] Performed By: #### 5 7021-8, 453-7 #### [facility] CLIA [id number] [address] [place] [address] [place] Eosinophils/100 WBC (Bld) 1.3 % Normal [facility] Comment on above: Order Comment: Specimen Type: BLOOD SPEC IMEN Ordering Facility: [facility] Address: [address] [place] [address] Performed By: #### 5 7021-8, 4536-7 #### [facility] CLIA [id number] [address] [place] [address] [place] Erythrocyte distribution width (RBC) [Ratio] 13.2 % Normal 11.5-15.0 [facility] Comment on above: Order Comment: Specimen Type: BLOOD SPEC IMEN Ordering Facility: [facility] Address: [address] [place] [address] Performed By: #### 5 7021-8, 4536-7 #### [facility] CLIA [id number] [address] [place] [address] [place] Hematocrit (Bld) [Volume fraction] 43.3 % Normal 36.0-46.0 [facility] Comment on above: Order Comment: Specimen Type: BLOOD SPEC IMEN Order[facility] Facility: [facility] Address: [address] [place] [address] Performed By: #### 5 7021-8, 4536-7 #### [facility] CLIA [id number] [address] [place] [address] [place] Hemoglobin (Bld) [Mass/Vol] 14.0 g/dL Normal 11.5-15.5 [facility] Comment on above: Order Comment: Specimen Type: BLOOD SPEC IMEN Order[facility] Facility: [facility] Address: [address] [place] [address] Performed By: #### 5 7021-8, 7-7 #### [facility] CLIA [id number] [address] [place] [address] [place] Immature granulocytes (Bld) [#/Vol] 0.03 10*3/uL Normal <0.10 [facility] Comment on above: Order Comment: Specimen Type: BLOOD SPEC IMEN Order[facility] Facility: [facility] Address: [address] [place] [address] Performed By: #### 5 7021-8, 4537-7 #### [facility] CLIA [id number] [address] [place] [address] [place] Immature granulocytes/10 0 WBC (Bld) 0.2 % Normal [facility] Comment on above: Order Comment: Specimen Type: BLOOD SPEC IMEN Ordering Facility: [facility] Address: [address] [place] [address] Performed By: #### 5 7021-8, 4537-7 #### [facility] CLIA [id number] [address] [place] [address] [place] Lymphocytes (Bld) [#/Vol] 2.98 10*3/uL Normal 1.00-4.00 [facility] Comment on above: Order Comment: Specimen Type: BLOOD SPEC IMEN Ordering Facility: [facility] Address: [address] [place] [address] Performed By: #### 5 7021-8, 4537-7 #### [facility] CLIA [id number] [address] [place] [address] [place] Lymphocytes/100 WBC (Bld) 24.7 % Normal [facility] Comment on above: Order Comment: Specimen Type: BLOOD SPEC IMEN Ordering Facility: [facility] Address: [address] [place] [address] Performed By: #### 5 7021-8, 4537-7 #### [facility] CLIA [id number] [address] [place] [address] [place] MCH (RBC) [Entitic mass] 29.9 pg Normal 26.0-34.0 [facility] Comment on above: Order Comment: Specimen Type: BLOOD SPEC IMEN Ordering Facility: [facility] Address: [address] [place] [address] Performed By: #### 5 7021-8, 453-7 #### [facility] CLIA [id number] [address] [place] [address] [place] MCHC (RBC) [Mass/Vol] 32.3 g/dL Normal 30.5-36.0 [facility] Comment on above: Order Comment: Specimen Type: BLOOD SPEC IMEN Order[facility] Facility: [facility] Address: [address] [place] [address] Performed By: #### 5 7021-8, 4536-7 #### [facility] CLIA [id number] [address] [place] [address] [place] MCV (RBC) [Entitic vol] 92.5 fL Normal 80.0-100.0 [facility] Comment on above: Order Comment: Specimen Type: BLOOD SPEC IMEN Ordering Facility: [facility] Address: [address] Performed By: #### 5 7021-8, 4536-7 #### [facility] CLIA [id number] [address] [place] [address] [place] Monocytes (Bld) [#/Vol] 0.67 10*3/uL Normal <0.87 [facility] Comment on above: Order Comment: Specimen Type: BLOOD SPEC IMEN Ordering Facility: [facility] Address: [address] Performed By: #### 5 7021-8, 4536-7 #### [facility] CLIA [id number] [address] [place] [address] OF [place] Monocytes/100 WBC (Bld) 5.5 % Normal [facility] Comment on above: Order Comment: Specimen Type: BLOOD SPEC IMEN Ordering Facility: [facility] Address: [address] Performed By: #### 5 7021-8, 4536-7 #### [facility] CLIA [id number] [address] [place] [address] [place] Neutrophils (Bld) [#/Vol] 8.18 10*3/uL High 1.45-7.50 [facility] Comment on above: Order Comment: Specimen Type: BLOOD SPEC IMEN Ordering Facility: [facility] Address: [address] [place] [address] Performed By: #### 5 7021-8, 4537-7 #### [facility] CLIA [id number] [address] [place] [address] [place] Neutrophils/100 WBC (Bld) 67.8 % Normal [facility] Comment on above: Order Comment: Specimen Type: BLOOD SPEC IMEN Order[facility]: [facility] Address: [address] [place] [address] Performed By: #### 5 7021-8, 4537-7 #### [facility] CLIA [id number] [address] [place] [address] [place] Nucleated RBC (Bld) [#/Vol] 10*3/uL Normal <0.01 [facility] Comment on above: Order Comment: Specimen Type: BLOOD SPEC IMEN Order[facility]: [facility] Address: [address] [place] [address] Performed By: #### 5 7021-8, 4537-7 #### [facility] CLIA [id number] [address] [place] [address] [place] Nucleated RBC/100 WBC (Bld) [Ratio] 0.0 /100 WBC Normal [facility] Comment on above: Order Comment: Specimen Type: BLOOD SPEC IMEN Order[facility] Facility: [facility] Address: [address] [place] [address] Performed By: #### 5 7021-8, 4537-7 #### [facility] CLIA [id number] [address] [place] [address] [place] Platelet mean volume (Bld) [Entitic vol] 8.5 fL Low 9.0-12.7 [facility] Comment on above: Order Comment: Specimen Type: BLOOD SPEC IMEN Ordering Facility: [facility] Address: [address] Performed By: #### 5 7021-8, 4537-7 #### [facility] CLIA [id number] [address] [place] [address] [place] Platelets (Bld) [#/Vol] 415 10*3/uL High 150-400 [facility] Comment on above: Order Comment: Specimen Type: BLOOD SPEC IMEN Order[facility]: [facility] Address: [address] Performed By: #### 5 7021-8, 4537-7 #### [facility] CLIA [id number] [address] [place] [address] [place] RBC (Bld) [#/Vol] 4.68 10*6/uL Normal 3.90-5.20 [facility] Comment on above: Order Comment: Specimen Type: BLOOD SPEC IMEN Ordering Facility: [facility] Address: [address] [place], [place] [address] Performed By: #### 5 7021-8, 4537-7 #### [facility] CLIA [id number] [address] [place] [address] [place] WBC (Bld) [#/Vol] 12.08 10*3/uL High 3.70-11.00 [facility] Comment on above: Order Comment: Specimen Type: BLOOD SPEC IMEN Ordering Facility: [facility] Address: [address] [place] [address] Performed By: #### 5 7021-8, 4537-7 #### [facility] CLIA [id number] [address] [place] [address] [facility] OF [place] CRP SerPl-mCncon 08-16-2022 CRP [Mass/Vol] 1.6 mg/dL High <1.0 [facility] Comment on above: Order Comment: Specimen Type: BLOOD SPEC IMENOrdering Facility: [facility] Address: [place] [address] Performed By: #### H , 88624-3, 1987-10 ####[facility] [id number] [place] [id number] [place] CT ORBITS WO IVCONon 023 CT ORBITS WO IVCON * * *Final Report* * * DATE OF EXAM: Aug 16 2022 7:25PM [facility] 0510 - CT ORBITS WO IVCON / PROCEDURE REASON: Uveitis or scleritis suspected * * * * Physician Interpretation * * * * EXAMINATION: CT ORBITS WO IVCON CLINICAL HISTORY: Right thigh pain Technique: Spiral high resolution axial unenhanced images were obtained through the facial bones with sagittal and coronal planar reconstructions. MQ: [id number] CT Radiation dose: Integrated Dose-Length Product (DLP) for this visit = 220.95 mGy*cm. CT Dose Reduction Employed: Automated exposure control(AEC) and iterative recon COMPARISON: None. RESULT: Technology Adoption Manager (topogram) images: No additional findings. Soft Tissues: No significant superficial soft tissue swelling. Facial bones: No evidence of an acute fracture in the visualized facial bones. Orbits: No evidence of an acute fracture. The globes are intact. The soft tissue planes of the orbits are maintained. Paranasal Sinuses: The paranasal sinuses are clear. Foreign Bodies: No evidence of radiopaque foreign bodies. Other: No evidence of a remote fracture. No lytic or blastic process seen in the facial bones. IMPRESSION: No evidence of acute facial bone fracture. Liquor Inspector: PSCB Transcribe Date/Time: Aug 16 2022 7:32P Dictated by : DELLA APARICIO MD This examination was interpreted and the report reviewed and electronically signed by: DELLA APARICIO MD on Aug 16 2022 7:33PM EST [id number] Normal [facility] Comprehensive metabolic 2000 panelon 08-16-2022 Albumin [Mass/Vol] 3.7 g/dL Normal 3.2-5.0 [facility] Comment on above: Order Comment: Specimen Type: BLOOD SPEC IMENOrdering Facility: [facility] Address: [place] [address] Performed By: #### Willi LORD, 1987-10 ####[facility] [id number] [place] [address] [place] ALP [Catalytic activity/Vol] 78 U/L Normal 45-117 [facility] Comment on above: Order Comment: Specimen Type: BLOOD SPEC IMENOrdering Facility: [facility] Address: [address] [place] [address] Performed By: #### Willi LORD, 1987-10 ####[facility] [id number] [place] [address] [place] ALT [Catalytic activity/Vol] 14 U/L Normal 13-61 [facility] Comment on above: Order Comment: Specimen Type: BLOOD SPEC IMENOrdering Facility: [facility] Address: [address] [place] [address] Result Comment: Resu lts may be falsely depressed after the administration of Sulfasalazine and/or Sulfapyridine. Performed By: #### Willi LORD, 1987-10 ####[facility] [id number] [address] STATES OF [facility] Anion gap [Moles/Vol] 7 mmol/L Normal 5-16 [facility] Comment on above: Order Comment: Specimen Type: BLOOD SPEC IMENOrdering Facility: [facility] Address: [address] [place] [address] Performed By: #### Willi LORD, 1987-10 ####[facility] [id number] [address] STATES [place] AST [Catalytic activity/Vol] 15 U/L Normal 8-34 [facility] Comment on above: Order Comment: Specimen Type: BLOOD SPEC IMENOrdering Facility: [facility] Address: [address] [place] [address] Result Comment: Resu lts may be falsely depressed after the administration of Sulfasalazine and/or Sulfapyridine. Performed By: #### Willi LORD, 1987-10 ####[facility] [id number] [place] [id number] [place] Bilirubin [Mass/Vol] 0.3 mg/dL Normal 0.2-1.0 [facility] Comment on above: Order Comment: Specimen Type: BLOOD SPEC IMENOrdering Facility: [facility] Address: [address] [place] [address] Performed By: #### Willi LORD, 1987-10 ####[facility] [id number] [place] [address] [place] Calcium [Mass/Vol] 9.6 mg/dL Normal 8.5-10.5 [facility] Comment on above: Order Comment: Specimen Type: BLOOD SPEC IMENOrdering Facility: [facility] Address: [address] [place] [address] Performed By: #### Willi LORD, 1987-10 ####[facility] [id number] [place] [address] [place] Chloride [Moles/Vol] 107 mmol/L Normal 98-107 [facility] Comment on above: Order Comment: Specimen Type: BLOOD SPEC IMENOrdering Facility: [facility] Address: [address] [place] [address] Performed By: #### Willi LORD, 1987-10 ####[facility] [id number] [place] [address] [place] CO2 [Moles/Vol] 27 mmol/L Normal 21-32 [facility] Comment on above: Order Comment: Specimen Type: BLOOD SPEC IMENOrdering Facility: [facility] Address: [address] [place] [address] Performed By: #### Willi LORD, 1987-10 ####[facility]ORYCLIA [id number] [place] [id number] [place] Creatinine [Mass/Vol] 0.72 mg/dL Normal 0.51-0.95 [facility] Comment on above: Order Comment: Specimen Type: BLOOD SPEC IMENOrdering Facility: [facility] Address: [address] [place] [address] Result Comment: Nina ents receiving either N-Acetylcysteine (NAC) or Metamizole prior to venipuncture, may have falsely depressed results. Performed By: #### [place], [address]-0, 1987-10 ####[facility]ORYCLIA [id number] [place] [id number] [facility] OF REJI ESTIMATED GLOMERULAR FILTRATION RATE 121 mL/min/1.73m??? Normal >=60 [facility] Comment on above: Order Comment: Specimen Type: BLOOD SPEC IMENOrdering Facility: [facility] Address: [address] [place] [address] Result Comment: Shaista mated Glomerular Filtration Rate (eGFR) is calculated using the 2020 CKD-EPI creatinine equation. This equation utilizes serum creatinine, sex, and age as parameters. The creatinine assay has traceable calibration to isotope dilution-mass spectrometry. Refer to KDIGO guidelines for clinical interpretation. In patients with unstable renal function, e.g. those with acute kidney injury, the eGFR may not accurately reflect actual GFR. Performed By: #### Willi CG, , 1987-10 ####[facility]ORY[facility] [id number] [place] [address] [place] Glucose [Mass/Vol] 95 mg/dL Normal 70-100 [facility] Comment on above: Order Comment: Specimen Type: BLOOD SPEC IMENOrdering Facility: [facility] Address: [address] [place] [address] Result Comment: The [place] Diabetes Association (ADA) provides guidance for cutoff values for fasting glucose and random glucose. The ADA defines fasting as no caloric intake for at least 8 hours. Fasting plasma glucose results between 100 to 125 mg/dL indicate increased risk for diabetes (prediabetes). Fasting plasma glucose results greater than or equal to 126 mg/dL meet the criteria for diagnosis of diabetes. In the absence of unequivocal hyperglycemia, results should be confirmed by repeat testing. In a patient with classic symptoms of hyperglycemia or hyperglycemic crisis, random plasma glucose results greater than or equal to 200 mg/dL meet the criteria for diagnosis of diabetes. Reference: Standards of Medical Care in Diabetes 2016, [place] Diabetes Association. Diabetes Care. 2016.39(Suppl 1). Results may be falsely elevated after the administration of Sulfapyridine. Results may be falsely depressed after the administration of Sulfasalazine. Performed By: #### Willi POP, 1987-10 ####[facility] [id number] [place] [id number] [place] Potassium [Moles/Vol] 4.6 mmol/L Normal 3.5-5.1 [facility] Comment on above: Order Comment: Specimen Type: BLOOD SPEC IMENOrdering Facility: [facility] Address: [address] [place] [address] Performed By: #### Willi POP, 1987-10 ####[facility]ORY[facility]IA [id number] [place] [id number] [place] Protein [Mass/Vol] 7.1 g/dL Normal 6.0-8.5 [facility] Comment on above: Order Comment: Specimen Type: BLOOD SPEC IMENOrdering Facility: [facility] Address: [address] Performed By: #### Willi POP, 1987-10 ####[facility]ORYCLIA [id number] [place] [address] [place] Sodium [Moles/Vol] 141 mmol/L Normal 136-145 [facility] Comment on above: Order Comment: Specimen Type: BLOOD SPEC IMENOrdering Facility: [facility] Address: [address] Performed By: #### Willi POP, 1987-10 ####[facility]ORYCLIA [id number] [place] [address] [place] Urea nitrogen [Mass/Vol] 11 mg/dL Normal 7-26 [facility] Comment on above: Order Comment: Specimen Type: BLOOD SPEC IMENOrdering Facility: [facility] Address: [address] Performed By: #### H [place], 237[address]-0, 1987-10 ####[facility]ORYCLIA [id number] [place] [id number] [place] ED PROV NOTEon 08-16-2022 ED PROV NOTE HNO ID: [id number] Author: Leticia Quiñonez PA-C Service: ? Author Type: Physician Annual Giving Director Type: ED Provider Notes Filed: 08/16/2022 11:09 PM Note Text: ED Provider Note Patient Name: Anika Metzger : 2000 SERVICE DATE: 08/16/22 History Patient presents with: Eye Pain: Pt reports eye pain that has not gone away. Pt states she visited her PCP and that he gave an eye drop that has done nothing. Pt states pain and swelling since Monday. The patient states for the last 4 to 5 days she has been experiencing right eye pain. She woke up with pain Monday. She describes the pain as a constant throbbing pain in the right eye, that goes behind the eye and down into her face. Nothing really makes it better or worse. She describes some light sensitivity. She denies any eye injury or trauma. She does not wear contact lenses. She has not noticed any eye redness, drainage, tearing from the eye. She denies any head pain elsewhere. She does not get frequent headaches or have a history of migraines. She denies any recent upper respiratory symptoms, numbness, tingling, weakness, fevers or chills. No past medical history on file. No past surgical history on file. No family history on file. Social History Tobacco Use Smoking status: Former Types: Cigarettes Passive exposure: Never Smokeless tobacco: Former Vaping Use Vaping Use: current everyday user Substance and Sexual Activity Alcohol use: Not Currently Drug use: Not on file Sexual activity: Not on file ALLERGIES No Known Allergies Review of Systems Constitutional: Negative for chills and fever. HENT: Negative for congestion, rhinorrhea, sinus pressure and sinus pain. Eyes: Positive for photophobia, pain and itching. Negative for discharge, redness and visual disturbance. Skin: Negative for rash. Neurological: Negative for dizziness, facial asymmetry, light-headedness, numbness and headaches. Physical Exam Vitals BP Pulse Temp Temp src Resp SpO2 Weight Height 08/16/22 1727 08/16/22 1727 08/16/22 1727 08/16/22 17208/16/22 17208/16/22172608/16/22 1852 -- 139/76 67 36.7 ?C (98.1 ?F) Oral 16 98 % 83.9 kg (185 lb) Physical Exam Constitutional: Appearance: Normal appearance. HENT: Head: Normocephalic. Comments: There are no facial rashes, swelling, lesions. Patient reports mild discomfort with palpation of the soft tissues of the eyelid and about the orbit. She has no direct tenderness palpation of the right temporal artery, temporal scalp. Nose: Nose normal. Mouth/Throat: Mouth: Mucous membranes are moist. Eyes: General: Lids are normal. Lids are everted, no foreign bodies appreciated. Gaze aligned appropriately. No scleral icterus. Right eye: No foreign body or discharge. Left eye: No foreign body or discharge. Extraocular Movements: Extraocular movements intact. Right eye: No nystagmus. Left eye: No nystagmus. Conjunctiva/sclera: Right eye: Right conjunctiva is not injected. No chemosis, exudate or hemorrhage. Left eye: Left conjunctiva is not injected. No chemosis, exudate or hemorrhage. Comments: Patient does report some pain with inferior gaze of the right eye. Otherwise extraocular movements are intact bilaterally. Sclera is clear. Conjunctive a pink. There is no steamy nests or haziness to the eyes bilaterally. Musculoskeletal: Cervical back: Neck supple. No rigidity or tenderness. Skin: General: Skin is warm. Neurological: General: No focal deficit present. Mental Status: She is alert and oriented to person, place, and time. Psychiatric: Mood and Affect: Mood normal. Behavior: Behavior normal. Thought Content: Thought content normal. Judgment: Judgment normal. Diagnostic Testing ED Labs Ordered and Reviewed CBC + DIFF - Abnormal; Notable for the following components: Result Value Ref Range WBC 12.08 (*) 3.70 - 11.00 k/uL Platelet Count 415 (*) 150 - 400 k/uL MPV 8.5 (*) 9.0 - 12.7 fL Abs Neut 8.18 (*) 1.45 - 7.50 k/uL All other components within normal limits Narrative: This is an appended report. These results have been appended to a previously verified report. C-REACTIVE PROTEIN (CRP) - Abnormal; Notable for the following components: CRP 1.6 (*) <1.0 mg/dL All other components within normal limits COMP METABOLIC PANEL - Normal HCG QUAL BLD - Normal SED RATE WESTERGREN - Normal Procedures ED Course / Clinical Impression Clinical Impressions as of 08/16/22 2309 Ocular pain, right eye MDM / Disposition / Plan While here in the emergency department I did visualize the right eye under Cortez lamp, fluorescein stain. There was no foreign body, dendritic lesions, abrasions. There is no uptake of fluorescein. IOP measurements have been obtained to the eyes bilaterally and were within normal limits. 3 measurements of each eye were obtained and were as follows: Right eye : 16, 19, 20. Left eye: 18 (more content not included)... Normal [facility] ESR Westergren method (Bld) [Velocity]on 08-16-2022 ESR (Bld) [Velocity] 17 mm/h Normal 0-20 [facility] Comment on above: Order Comment: Specimen Type: BLOOD SPEC IMEN Ordering Facility: [facility] Address: [address] [address] Performed By: #### 5 7021-8, 4537-7 #### [facility] CLIA [id number] [place] HCG QUAL BLDon 08-16-2022 HCG, QUALITATIVE Negative Normal Negative [facility] Comment on above: Order Comment: Specimen Type: BLOOD SPEC IMENOrdering Facility: [facility] Address: [address] [address] Performed By: #### H [place], 800[address]-7, 1987-10 ####[facility]ATORYCLIA [id number] [address] [place] CNPNon 06-29-2022 CNPN Telephone ([facility]) ANIKA METZGER ([id number]) 2000 F Date Time Provider Department 06/29/22 CADENCE COLUNGA [facility] During your visit today, we recorded the following information about you: Cadence Colunga DO 06/29/2022 7:48 AM Signed Called patient with positive COVID result. Cadence Colunga DO Allergies As of Date: 06/29/2022 (No Known Allergies) Date Reviewed: Never Reviewed Reason for Visit: Results [95] Prescriptions as of 06/29/2022 - pseudoephedrine HCl (SUDAFED ORAL) Take by mouth. - acetaminophen (TYLENOL EXTRA STRENGTH) 500 mg tablet Take 500 mg by mouth every 8 hours as needed. - amoxicillin (AMOXIL) 875 mg tablet Take 1 tablet by mouth every 12 hours for 10 days. Problem List As Of Date: 06/29/2022 (None) Encounter Status:Closed by CADENCE COLUNGA on 06/29/22 [facility] CNNixon 06-28-2022 CNOV Office Visit ([facility] ) ANIKA METZGER ([id number]) 2000 F Date Time Provider Department 06/28/22 8:35 AM MIRIAM GONZALEZ [facility] During your visit today, we recorded the following information about you: Temperature Pulse Respiration Blood pressure 97.7 degrees 108/minute 20/minute 111/79 Weight Last Period 83.9 kg 06/15/22 Miriam Gonzalez APRN.RAIL OPERATOR 06/28/2022 10:11 AM Signed Anika is a 22 year old female arriving at clinic today for Patient presents with: hot cold sweats: All s/s started Monday Syncope: This am Vomiting Cough Sore Throat chest congestion and ear congestion: Chest is sore from coughing Patient was on the toilet having a bowel movement when she had the dizziness, sweaty, and laid her head down on the sink. She thinks she passed out for a couple of seconds but came to still on the toilet. She had nausea. She also complains of sinus pain, congestion, cough, and sore throat. Ear pressure as well as chest congestion. Denies shortness of breath, chest pain, jaw pain. Vital Signs: BP 111/79 Pulse 108 Temp 97.7 Resp 20 Wt 185 lb (83.9kg) SpO2 97% LMP 06/15/2022 Allergies: ALLERGIES No Known Allergies Current Medications: pseudoephedrine HCl (SUDAFED ORAL) Take by mouth. acetaminophen (TYLENOL EXTRA STRENGTH) 500 mg tablet Take 500 mg by mouth every 8 hours as needed. No past medical history on file. No past surgical history on file. Review of Systems: Review of Systems see HPI Exam: Physical Exam Vitals and nursing note reviewed. Constitutional: General: She is not in acute distress. Appearance: Normal appearance. She is obese. She is ill-appearing. She is not diaphoretic. HENT: Head: Normocephalic and atraumatic. Right Ear: No tenderness. Tympanic membrane is bulging. Tympanic membrane is not injected. Left Ear: No tenderness. Tympanic membrane is bulging. Tympanic membrane is not injected. Nose: Nasal tenderness, mucosal edema, congestion and rhinorrhea present. Rhinorrhea is purulent. Mouth/Throat: Pharynx: Oropharynx is clear. Eyes: Conjunctiva/sclera: Conjunctivae normal. Cardiovascular: Rate and Rhythm: Normal rate and regular rhythm. Heart sounds: Normal heart sounds. Pulmonary: Effort: Pulmonary effort is normal. Breath sounds: Normal breath sounds. Abdominal: General: Bowel sounds are normal. Palpations: Abdomen is soft. Skin: General: Skin is warm. Neurological: Mental Status: She is alert. ASSESSMENT/PLAN: 1. Chest pain, unspecified type - ICD9: 786.50, ICD10: R07.9 (primary diagnosis) - Electrocardiogram: see chart Follow up with PCP Reviewed with Dr. Colunga and recommended follow up with PCP if symptomatic, patient is assymptomatic - ECG COMPLETE 2. Acute non-recurrent maxillary sinusitis - ICD9: 461.0, ICD10: J01.00 - Will begin treatment with Amoxicillin for 10 days - Supportive care with plenty of fluids, rest, and analgesia prn. - AMOXICILLIN 875 MG TABLET 3. Fever, unspecified fever cause - ICD9: 780.60, ICD10: R50.9 Tylenol as directed - RAPID FLU A AND B - Negative - RESPIRATORY PANEL BY RAPID PCR (WITH COVID) - will call with results Patient required to have a COVID test for work. Reviewed exam results in detail and plan with patient Patient understands and agreed. Miriam Gonzalez APRN.RAIL OPERATOR . Yohana Ravi LPN 06/28/2022 10:11 AM Signed EKG performed and pt tolerated well. WHIT Luciano APRN.RAIL OPERATOR 06/28/2022 10:03 AM Addendum Vasovagal Response Gastroenteritis Sinusitis Amoxicillin as directed BRAT diet Bananas, Rice, applesauce, [place] Push a lot of fluids Coke - stir out bubbles - help with nausea Follow up with PCP for a recheck of EKG and symptoms If chest pain and symptoms return, call 911, go to ED Rapid Flu Negative Respiratory Panel sent - will call with results Alex Landeros 06/28/2022 10:22 AM Signed Addended by: ALEX LANDEROS on: 06/28/2022 10:22 AM Modules accepted: Orders Referring Provider: SELF [200] Allergies As of Date: 06/28/2022 (No Known Allergies) Date Reviewed: Never Reviewed Reason for Visit: hot cold sweats [Other] Cmt: All s/s started Monday Syncope [106] Cmt: This am Vomiting [120] Cough [28] Sore Throat [200] chest congestion and ear congestion [Other] Cmt: Chest is sore from coughing Primary Visit Diagnosis:Chest pain, unspecified type [R07.9] Other Visit Diagnoses:Acute non-recurrent maxillary sinusitis [J01.00] Fever, unspecified fever cause [R50.9] Order(s):ECG COMPLETE [ECG01] Order #: [id number] FUTURE ECG COMPLETE [ECG01] Order #: [id number] amoxicillin (AMOXIL) 875 mg tabletTake 1 tablet by mouth every 12 hours for 10 days.Disp: 20 tabletRfl: 0 RAPID FLU A AND B [SQFLUEIA] Order #: [id number] FUTURE RESPIRATORY PANEL BY RAPID PCR (WITH COVID) [SQRPRACV] Order #: [id number] FUTURE RA (more content not included)... Normal [facility] [id number] 06-28-2022 ECG01 Ventricular Rate : 1 04 BPM Atrial Rate : 104 BPM P-R Interval : 124 ms QRS Duration : 78 ms Q-T Interval : 316 ms QTC Calculation(Bazett) : 415 ms Calculated P Pickett : 37 degrees Calculated R Pickett : 27 degrees Calculated T Pickett : -5 degrees Sinus tachycardia Nonspecific T wave abnormality Abnormal ECG No previous ECGs available Confirmed by AKSHIF TRAMMELL MD ([id number]) on 06/28/2022 2:22:00 PM NAME : ANIKA METZGER PID : [id number] : 2000 Gender : Female Race : ORD : [id number] Procedure Date : Jun 28 2022 09:12:18 Edit Date : Jun 28 2022 14:22:01 Diagnosis: Sinus tachycardia Nonspecific T wave abnormality Abnormal ECG No previous ECGs available Confirmed by KASHIF TRAMMELL MD ([id number]) on 06/28/2022 2:22:00 PM Test Reason : R07.9 Chest pain, unspecified type Location : 189 : URGCAR Overread By : KASHIF TRAMMELL MD Edited By : KASHIF TRAMMELL MD Referred By : Connie GONZLAEZ Acquired by : LEONEL, [facility] FLUAV+FLUBV Ag Ql (Unsp spec )on 06-28-2022 FLUAV+FLUBV Ag IA Ql (Unsp spec) Negative for Influenza A and B Protein Antigens by EIA - Note: Negative findings may not exclude infection with influeza A or B. Results should be used in conjunction with clinical findings. Normal Negative for Influenza A and B Protein Antigens by EIA [facility] Comment on above: Order Comment: Specimen Type: SPECIMEN F ROM NASOPHARYNGEAL STRUCTURE Ordering Facility: [facility] Address: [address] [place] [address] [place] [address] Performed By: #### 2 4015-0 #### [facility] CLIA [id number] [address] [place] [address] [place] SARS-CoV-2 RNA Resp Ql CHRISTIANO+p robeon 06-28-2022 SARS-CoV-2 (COVID-19) RNA CHRISTIANO+probe Ql (Resp) COVID 19 RESULT: SARS-CoV-2 (Agent of COVID-19) Detected by RT-PCR or equivalent method. Abnormal [facility] Comment on above: Performed By: #### 41150-1 #### [facility] CLIA [id number] [facility] [address] STATES OF [facility] CT ABD/PEL ORAL CONTRASTon 0 11-01-2021 CT ABD/PEL ORAL CONTRAST CT ABD/PEL ORAL CONTRAST Ordering Physician: Natalie Simpson MD 11/01/2021 COMPUTED TOMOGRAPHY ABDOMEN AND PELVIS WITH ORAL CONTRAST Clinical Statement: Lower abdominal pain TECHNIQUE: 3.75 mm thick axial images of the abdomen and pelvis were obtained following the administration of oral contrast. Evaluation is limited due to lack of intravenous contrast. The study was compared to a previous examination dated 11/12/2017. FINDINGS: The images through the lung bases show no acute abnormalities. The liver shows no acute findings. The gallbladder is unremarkable. There is no ductal dilatation. The spleen is normal in size with no acute abnormalities. The pancreas shows no acute findings. There is no pancreatic ductal dilatation. The adrenal glands are unremarkable. There are no renal calculi. There is no hydronephrosis. The ureters are not dilated. There is no bowel obstruction. The appendix is unremarkable. There is no free fluid in the pelvis. The uterus and urinary bladder show no acute abnormalities. There are no adnexal mass lesions. There are mildly prominent inguinal lymph nodes most likely reactive. There is no free air. There is no ascites. The aorta and inferior vena cava are unremarkable. There are no acute osseous abnormalities. IMPRESSION: No acute abnormalities. Evaluation is limited due to lack of intravenous contrast. This report was electronically signed by Naeem Cueva MD 11/02/2021 7:40 AM Reported By: NAEEM CUEVA M.D. Signed By: NAEEM CUEVA M.D. Normal [facility] B12on 07-06-2021 Cobalamin (Vitamin B12) [Mass/Vol] 422.0 pg/mL Normal 193-986 [facility] Comment on above: Performed By: #### L500.13396, L500.0180 5, L500.25453, L500.60093, L500.93681, L550.11368, L500.74238 #### [facility] [place] [address] BMPon 07-06-2021 Anion gap [Moles/Vol] 9 mmol/L Normal 5-16 [facility] Comment on above: Performed By: #### L500.61173, L500.0180 5, L500.18044, L500.85222, L500.54527, L550.27457, L500.95138 #### [facility] [address] [place] [address] Calcium [Mass/Vol] 9.7 mg/dL Normal 8.5-10.5 [facility] Comment on above: Result Comment: NOTE NEW NORMAL RANGE DU E TO REAGENT CHANGE Performed By: #### L 500.00683, L500.61186, L500.56247, L500.72261, L500.83775, L550.81085, L500.25983 #### [facility] [address] [place] [address] Chloride [Moles/Vol] 105 mmol/L Normal 98-107 [facility] Comment on above: Performed By: #### L500.58984, L500.0180 5, L500.94319, L500.42560, L500.46186, L550.05917, L500.88916 #### [facility] [address] [place] [address] CO2 [Moles/Vol] 28.0 mmol/L Normal 21-32 [facility] Comment on above: Performed By: #### L500.65756, L500.0180 5, L500.53808, L500.50250, L500.24943, L550.27375, L500.31344 #### [facility] [address] [place], [place] [id number] Creatinine [Mass/Vol] 0.71 mg/dL Normal 0.510-0.95 0 [facility] Comment on above: Result Comment: Patients receiving eithe r N-Acetylcysteine (NAC) or Metamizole prior to venipuncture, may have falsely depressed results. Performed By: #### L 500.69126, L500.71592, L500.08470, L500.95794, L500.64594, L550.23200, L500.60136 #### [facility] [place] [address] Glucose [Mass/Vol] 81 mg/dL Normal 70-100 [facility] Comment on above: Result Comment: 70-100- Normal Fasting; 100-125 Impaired Fasting; greater than 126 on more than one result- Diabetes. ADA guidelines. Results may be falsely elevated after the administration of Sulfapyridine. Results may be falsely depressed after the administration of Sulfasalazine. Performed By: #### L 500.30599, L500.37517, L500.15298, L500.15219, L500.67105, L550.69249, L500.56658 #### [facility] [address] [place] [address] Potassium [Moles/Vol] 3.9 mmol/L Normal 3.5-5.1 [facility] Comment on above: Performed By: #### L500.93286, L500.0180 5, L500.68029, L500.42000, L500.70880, L550.83814, L500.28576 #### [facility] [place] [address] Sodium [Moles/Vol] 142 mmol/L Normal 136-145 [facility] Comment on above: Performed By: #### L500.89512, L500.0180 5, L500.49046, L500.08606, L500.56494, L550.74248, L500.91664 #### [facility] [address] [place], [place] [address] Urea nitrogen [Mass/Vol] 12 mg/dL Normal 7-26 [facility] Comment on above: Performed By: #### L500.24730, L500.0180 5, L500.87901, L500.13095, L500.85054, L550.68317, L500.04807 #### [facility] [address] [place] [address] Urea nitrogen/Creati nine [Mass ratio] 16.81 mg/mg Normal 15-24 [facility] Comment on above: Performed By: #### L500.48895, L500.0180 5, L500.90056, L500.27493, L500.12670, L550.41459, L500.77079 #### [facility] [address] [place] [address] CBC W/DIFFon 07-06-2021 BASO ABS 0.07 K/CU MM Normal 0-0.2 [facility] Comment on above: Performed By: #### L200.09719, L550.0376 0 #### [facility] [address] [place] [address] Basophils/100 WBC (Bld) 0.5 % Normal 0-2 [facility] Comment on above: Performed By: #### L200.95018, L550.0376 0 #### [facility] [address] [place] [address] EOS ABS 0.37 K/CU MM Normal 0-0.5 [facility] Comment on above: Performed By: #### L200.50120, L550.0376 0 #### [facility] [address] [place] [address] Eosinophils/100 WBC (Bld) 2.6 % Normal 0-5 [facility] Comment on above: Performed By: #### L200.83134, L550.0376 0 #### [facility] [address] [place] [address] Erythrocyte distribution width (RBC) [Ratio] 13.4 % Normal 11-14.5 [facility] Comment on above: Performed By: #### L200.07341, L550.0376 0 #### [facility] [address] [place] [address] Hematocrit (Bld) [Volume fraction] 41.3 % Normal 35.0-47.0 [facility] Comment on above: Performed By: #### L200.41622, L550.0376 0 #### [facility] [address] [place] [address] Hemoglobin (Bld) [Mass/Vol] 13.4 g/dL Normal 11.5-15.5 [facility] Comment on above: Performed By: #### L200.90754, L550.0376 0 #### [facility] [address] [place] [address] IMMATR GRAN ABS 0.06 K/CU MM Normal Less than 2 [facility] Comment on above: Performed By: #### L200.26054, L550.0376 0 #### [facility] [address] [place] [address] IMMATURE GRAN % 0.4 % Normal Less than 2 [facility] Comment on above: Performed By: #### L200.07478, L550.0376 0 #### [facility] [address] [place] [address] LYMPH ABS 4.28 K/CU MM Normal 0.9-4.4 [facility] Comment on above: Performed By: #### L200.24099, L550.0376 0 #### [facility] [address] [place] [address] Lymphocytes/100 WBC (Bld) 29.9 % Normal 20-40 [facility] Comment on above: Performed By: #### L200.70882, L550.0376 0 #### [facility] [address] [place] [address] MCHC (RBC) [Mass/Vol] 32.4 g/dL Normal 32.0-36.0 [facility] Comment on above: Performed By: #### L200.46073, L550.0376 0 #### [facility] [address] [place] [address] MCV (RBC) [Entitic vol] 92.8 fL Normal 80.0-99.0 [facility] Comment on above: Performed By: #### L200.75170, L550.0376 0 #### [facility] [address] [place] [address] MONO ABS 0.77 K/CU MM Normal 0.1-1.1 [facility] Comment on above: Performed By: #### L200.77058, L550.0376 0 #### [facility] [address] [place] [address] Monocytes/100 WBC (Bld) 5.4 % Normal 2-10 [facility] Comment on above: Performed By: #### L200.51819, L550.0376 0 #### [facility] [address] [place] [address] NEUTROPHIL ABS 8.78 K/CU MM High 2.0-8.3 [facility] Comment on above: Performed By: #### L200.42914, L550.0376 0 #### [facility] [address] [place] [address] Neutrophils/100 WBC (Bld) 61.2 % Normal 45-75 [facility] Comment on above: Performed By: #### L200.23382, L550.0376 0 #### [facility] [place] [address] PLT 386 K/CU MM Normal 150-450 [facility] Comment on above: Performed By: #### L200.53568, L550.0376 0 #### [facility] [address] [place] [address] RBC 4.45 M/CU MM Normal 3.90-5.30 [facility] Comment on above: Performed By: #### L200.54762, L550.0376 0 #### [facility] [address] [place] [address] WBC 14.3 K/CUMM High 4.5-11.0 [facility] Comment on above: Performed By: #### L200.12070, L550.0376 0 #### [facility] [address] [place], [place] [id number] GFR ESTon 07-06-2021 IF AMER Greater than 60 Normal [facility] Comment on above: Performed By: #### L500.28401, L500.0180 5, L500.40505, L500.67418, L500.61245, L550.16762, L500.82654 #### [facility] [address] [place] [address] IF non-AFR AMER Greater than 60 Normal [facility] Comment on above: Performed By: #### L500.66282, L500.0180 5, L500.38625, L500.62785, L500.59811, L550.45274, L500.58946 #### [facility] [address] [place] [address] HGB A1C GLYCOHBon 07-06-2021 HbA1c (Bld) [Mass fraction] 5.5 % Normal 4.3-6.0 [facility] Comment on above: Performed By: #### L200.48443, L550.0376 0 #### [facility] [address] [place] [id number] LIVERon 07-06-2021 Albumin [Mass/Vol] 3.7 g/dL Normal 3.2-5.0 [facility] Comment on above: Performed By: #### L500.24465, L500.0180 5, L500.61714, L500.45816, L500.22605, L550.08952, L500.67965 #### [facility] [address] [place] [address] Albumin/Globuli n [Mass ratio] 1.09 {ratio} Normal 0.8-2.0 [facility] Comment on above: Performed By: #### L500.68059, L500.0180 5, L500.73866, L500.81255, L500.03689, L550.12781, L500.15634 #### [facility] [address] [place], [place] [id number] ALK PHOS 90 U/L Normal 45-117 [facility] Comment on above: Performed By: #### L500.85796, L500.0180 5, L500.59368, L500.98005, L500.06182, L550.15996, L500.66460 #### [facility] [address] [place] [address] ALT [Catalytic activity/Vol] 19 U/L Normal 13-61 [facility] Comment on above: Result Comment: RESULTS MAY BE FALSELY D EPRESSED AFTER THE ADMINISTRATION OF SULFASALAZINE AND/OR SULFAPYRIDINE. Performed By: #### L 500.21800, L500.96174, L500.01747, L500.42430, L500.98341, L550.04352, L500.13518 #### [facility] [address] [place] [address] AST [Catalytic activity/Vol] 17 U/L Normal 8-34 [facility] Comment on above: Result Comment: RESULTS MAY BE FALSELY D EPRESSED AFTER THE ADMINISTRATION OF SULFASALAZINE AND/OR SULFAPYRIDINE. Performed By: #### L 500.22276, L500.13465, L500.19705, L500.70037, L500.58406, L550.68632, L500.60471 #### [facility] [address] [place] [address] BILI DIRECT Normal 0.00-0.36 [facility] Comment on above: Result Comment: LESS THAN 0.10 Performed By: #### L 500.27821, L500.42094, L500.07513, L500.81020, L500.96832, L550.75992, L500.50089 #### [facility] [address] [place] [address] BILI TOTAL 0.20 MG/DL Normal 0.2-1.0 [facility] Comment on above: Performed By: #### L500.98525, L500.0180 5, L500.42812, L500.74447, L500.86036, L550.20393, L500.08085 #### [facility] [address] [place] [address] Globulin (S) [Mass/Vol] 3.4 g/dL Normal 2.2-4.2 [facility] Comment on above: Performed By: #### L500.96169, L500.0180 5, L500.55053, L500.55152, L500.79124, L550.39113, L500.05682 #### [facility] [address] [place] [address]244 Protein [Mass/Vol] 7.1 g/dL Normal 6.0-8.5 [facility] Comment on above: Performed By: #### L500.11858, L500.0180 5, L500.84211, L500.15499, L500.11530, L550.95021, L500.77057 #### [facility] [place] [id number] T4 FREEon 07-06-2021 Free T4 [Mass/Vol] 0.95 ng/dL Normal 0.76-1.46 [facility] Comment on above: Performed By: #### L500.85707, L500.0180 5, L500.86521, L500.93083, L500.06080, L550.10471, L500.09858 #### [facility] [address] [place] [address] TSHon 07-06-2021 TSH 2.224 UIU/ML Normal 0.358-3.74 0 [facility] Comment on above: Result Comment: 3rd generation ultra sen sitive TSH Performed By: #### L 500.24837, L500.94122, L500.21463, L500.16265, L500.44092, L550.75946, L500.97198 #### [facility] [address] [place] [address] [id number] 07-06-2021 [id number] 14.0 NG/ML Low 30.0-100.0 [facility] Comment on above: Result Comment: Deficiency Less than 20 ng/mL Insufficiency 20 - Less than 30 ng/mL Sufficiency 30 - 100 ng/mL Performed By: #### L 500.27654, L500.99895, L500.41616, L500.89058, L500.22616, L550.76065, L500.03684 #### [facility] [address] [place], [place] [id number] [id number] 02-08-2021 SARS-CoV-2 (COVID-19) RNA CHRISTIANO+probe Ql (Unsp spec) Negative Invalid Interpretation Code Negative [facility] Comment on above: Order Comment: Byars: NC Result Comment: Nega tive results do not preclude SARS-CoV-2 infection and should not be used as the sole basis for treatment or other patient management decisions. Negative results must be combined with clinical observation, patient history, and epidemiological information. This test was performed by PCR. Performed By: #### L 500.23007, L500.17086, L500.52284, L500.36151, L500.43497, L550.56088, L500.50719 #### [facility] [address] [place] [address] ROUTINE COVIDon 02-08-2021 SARS-CoV-2 (COVID-19) RNA CHRISTIANO+probe Ql (Unsp spec) TNP Normal NEGATIVE [facility] Comment on above: Order Comment: Byars: NC Result Comment: SEE RAPIDCOVID Performed By: #### L 770.73551, L770.04947 #### [facility] [place] [address] CHEST PA/AP AND LATERALon CHEST PA/AP AND LATERAL CHEST PA/AP LATERAL Ordering Physician: Candy Costa 02/07/2021 4:23 PM PA AND LATERAL CHEST: Clinical Statement: Cough, short of breath. Comparison: 11/10/2017. FINDINGS: The heart, hilar and mediastinal contours are within normal limits. The lungs are clear. No congestion, pleural fluid or pneumothorax. The bony thorax is unremarkable. IMPRESSION: No active disease within the chest. This report was electronically signed by August Samuels MD 02/08/2021 7:22 AM Reported By: AUGUST SAMUELS M.D. Signed By: AUGUST SAMUELS M.D. [facility] 02-07-2021 [facility] REPORT [facility] DATE OF SERVICE: HISTORY OF PRESENT ILLNESS: A 20-year-old female presenting with a chief complaint of loss of taste and smell, nasal congestion, sinus drainage, headache, fatigue, cough, wheezing, shortness of breath, and nausea. Denies any fevers, chills, body aches. 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 PAST MEDICAL HISTORY: Significant for depression and mental health issues. PAST SURGICAL HISTORY: Significant for oral surgery. SOCIAL HISTORY: She does report smoking a half pack of cigarettes a day, occasional alcohol use. FAMILY HISTORY: High blood pressure and diabetes. MEDICATIONS: 1. control. 2. Fluoxetine. 3. Acetaminophen. 4. Mucinex. [facility] PATIENT NAME: ANIKA METZGER [address] MEDICAL REC #: [id number] [place] [address] [facility] REPORT STATCARE PHYSICIAN 5Tiffany Olmedo. ALLERGIES: No known drug allergies. No other allergies indicated. REVIEW OF SYSTEMS:Constitutional: Denies any fevers, chills, or body aches. She does have slight fatigue. HEENT: Congestion, drainage. No sore throat. Bilateral ear pain. Pulmonary: She does have cough, wheezing, shortness of breath. Cardiac: No chest pains or heart palpitations. Abdominal: She does have slight nausea. No vomiting, diarrhea, or abdominal pain. PHYSICAL EXAMINATION: Blood pressure 119/73, pulse 86, respiratory rate 24, temperature 97.6, and oxygen is 99%. General Appearance: The patient is sitting in the exam room, no acute distress, alert and oriented x3. Pulmonary: The lungs are clear. No wheezing, rales, or rhonchi. Cardiac: Normal rate and rhythm. No murmurs or gallops auscultated. Skin exam overall is within normal limits. HEENT: Bilateral tympanic membranes nonerythematous, non-bulging. Pharynx nonerythematous. Uvula midline. Abdomen: Abdomen soft, nontender. Normal bowel sounds. DIAGNOSTICS: Chest x-ray obtained. My interpretation is no acute process. COVID-19 [facility] PATIENT NAME: ANIKA METZGER [address] MEDICAL REC #: [id number] [place] [address] [facility] REPORT STATCARE PHYSICIAN testing performed; results still pending. ASSESSMENT AND PLAN/DIAGNOSIS: Upper respiratory infection, possible COVID. Patient given a note to be off work until COVID results are back. I did send over Bromfed cough syrup 5 mL every 6 hours as needed for cough and cold symptoms as well as an albuterol inhaler to use as needed. The patient was agreeable, stable. If symptoms worsen, follow up with primary care. Otherwise, if symptoms worsen, go to the ER. Patient agreeable, given a note to be off work until COVID results are back. Tylenol, Motrin, fluids, rest. All questions answered. PIOTR Mathis/[id number] [facility] File#: [id number] END OF DOCUMENT / CHANGE LOG FOLLOWS Last Edited By Elec. Signed By [facility] PATIENT NAME: ANIKA METZGER [address] MEDICAL REC #: [id number] [place] [address] [facility] REPORT STATCARE PHYSICIAN Roxane Bolton PAC #[id number] Roxane Bolton PAC #[id number] on 02/10/2021 08:17 ET on 02/10/2021 08:17 ET Revision Number - 2 Verified/Reviewed by 02/10/21816 [facility] PATIENT NAME: ANIKA METZGER [address] MEDICAL REC #: [id number] [place] [address] [facility] REPORT STATCARE PHYSICIAN Normal [facility] Vital Signs Date Time Vital Sign Value Performing Clinician Jose Maria barnes 02-25-2025 13:41-0400 Body height 149.86 cm Pam Rogers FINANCE LECTURER-C Work Phone: [facility] 02-25-2025 13:41-0400 Body mass index (BMI) [Ratio] 33.4 kg/m2 Pam Rogers FINANCE LECTURER-C Work Phone: [facility] 02-25-2025 13:41-0400 Body weight 75.06 kg Pam Rogers FINANCE LECTURER-C Work Phone: [facility] 02-25-2025 13:41-0400 Diastolic blood pressure 62 mm[Hg] Pam Rogers FINANCE LECTURER-C Work Phone: [facility] 02-25-2025 13:41-0400 Systolic blood pressure 115 mm[Hg] Pam Mendezs FINANCE LECTURER-C Work Phone: [facility] 02-03-2025 08:50-0400 Body height 149.86 cm Pam Mendezs FINANCE LECTURER-C Work Phone: [facility] 02-03-2025 08:50-0400 Body mass index (BMI) [Ratio] 33.9 kg/m2 Pam Sue FINANCE LECTURER-C Work Phone: [facility] 02-03-2025 08:50-0400 Body weight 76.2 kg Pamlencho Mendezs FINANCE LECTURER-C Work Phone: [facility] 02-03-2025 08:50-0400 Diastolic blood pressure 82 mm[Hg] Pam Gambrills FINANCE LECTURER-C Work Phone: [facility] 02-03-2025 08:50-0400 Systolic blood pressure 112 mm[Hg] Pamlencho Mendezs FINANCE LECTURER-C Work Phone: [facility] 09-08-2023 16:02-0400 Body mass index (BMI) [Ratio] 31.51 kg/m2 Melvin Ramirez MD Work Phone: [facility] 09-08-2023 16:02-0400 Body weight 70.76 kg Melvin Ramirez MD Work Phone: [facility] 09-08-2023 16:02-0400 Diastolic blood pressure 74 mm[Hg] Melvin Ramirez MD Work Phone: [facility] 09-08-2023 16:02-0400 Heart rate 85 /min Melvin Ramirez MD Work Phone: [facility] 09-08-2023 16:02-0400 Systolic blood pressure 114 mm[Hg] Melvin Ramirez MD Work Phone: [facility] 08-25-2023 12:42-0400 Body height 149.9 cm Melvin Ramirez MD Work Phone: [facility] [place] 08-25-2023 12:42-0400 Body mass index (BMI) [Ratio] 32.92 kg/m2 Melvin Ramirez MD Work Phone: [facility] [place] 08-25-2023 12:42-0400 Body weight 73.94 kg Melvin Ramirez MD Work Phone: [facility] 08-25-2023 12:42-0400 Diastolic blood pressure 73 mm[Hg] Melvin Ramirez MD Work Phone: [facility] [place] 08-25-2023 12:42-0400 Heart rate 96 /min Melvin Ramirez MD Work Phone: [facility] 08-25-2023 12:42-0400 Systolic blood pressure 124 mm[Hg] Melvin Ramirez MD Work Phone: [facility] Encounters Encounter Date Encounter Type Care Provider Facility Start: 03-04-2025 ambulatory Jacey Paul Facility:[facility] Start: 03-03-2025 Encounter for other preprocedural examination Jacey Paul [facility] Start: 02-25-2025 End: 02-25-[address] Jacey Paul DO -[facility] Work Phone: Start: 02-25-2025 End: 02-25-2025 ambulatory Pam Rogers FINANCE LECTURER-C Work Phone: -[facility] Start: 02-14-2025 Patient encounter procedure Pam Rogers FINANCE LECTURER-C -[facility] Work Phone: Start: 02-14-2025 End: 02-14-2025 ambulatory Pamlencho Mendezs FINANCE LECTURER Facility:[facility] Start: 02-03-2025 End: 02-03-2025 ambulatory Pam Rogers FINANCE LECTURER-C Work Phone: -Laboratory Specimen Start: 02-03-2025 End: 02-03-2025 Patient encounter procedure Pam Rogers FINANCE LECTURER-C -Laboratory Specimen Work Phone: Start: 02-03-2025 End: 02-03-2025 Patient encounter procedure Pam Rogers FINANCE LECTURER-C -[facility] Work Phone: Start: 02-03-2025 End: 02-03-2025 ambulatory Pamlencho Mendezs FINANCE LECTURER -[facility] Start: 02-03-2025 End: 02-03-2025 ambulatory Pamlencho Mendezs FINANCE LECTURER Facility:[facility] Start: 12-30-2024 End: 01-03-2025 ambulatory BROOKE ESQUIVEL STALLION KEEPER-RAIL OPERATOR Facility:A Start: 10-08-2024 End: 10-11-2024 ambulatory Marat Russ RN [facility] Clinical Communication Start: 10-08-2024 End: 10-11-2024 Patient encounter procedure Marta Russ RN [facility] Clinical Communication Start: 02-07-2024 End: 02-07-2024 Orders Only Melvin Ramirez MD Work Phone: [facility] [employer] Comment on above: control counse ling (Primary Dx) Start: 12-08-2023 End: 12-08-2023 [facility] Start: 12-08-2023 End: 12-08-2023 Encounter for gynecological examination (general) (routine) without abnormal findings [facility] Start: 09-08-2023 End: 09-08-2023 Office outpatient visit 15 minutes Melvin Ramirez MD Work Phone: [facility] DIETITIAN ASSISTANT Comment on above: Abscess of right Bar tholin's gland (Primary Dx); control counseling Start: 08-25-2023 End: 08-25-2023 Office outpatient new 45 minutes Melvin Ramirez MD Work Phone: [facility] DIETITIAN ASSISTANT Comment on above: Abscess of right Bar tholin's gland (Primary Dx) Start: 08-11-2023 End: 08-15-2023 ambulatory BROOKE ESQUIVEL STALLION KEEPER-RAIL OPERATOR Facility:A Start: 08-11-2023 End: 08-15-2023 Encounter for general adult medical examination without abnormal findings BROOKE ESQUIVEL STALLION KEEPER-RAIL OPERATOR Facility:A Start: 08-19-2022 End: 08-19-2022 Emergency department patient visit NATALIE SIMPSON Facility:[id number] Start: 08-18-2022 End: 08-23-[address] NATALIE SIMPSON MD Facility:A Start: 08-16-2022 End: 08-16-2022 Emergency department patient visit NIKHIL RUIBO Facility:[id number] Start: 06-29-2022 Telephone encounter Cadence pearce DO Work Phone: [facility] Comment on above: Results Start: 06-28-2022 End: 06-28-2022 ambulatory MIRIAM GONZALEZ Facility:[id number] Start: 11-01-2021 End: 11-01-2021 Subsequent hospital visit by physician Natalie Simpson MD Work Phone: [facility] Comment on above: R10.30 Start: 07-02-2021 End: 07-02-2021 Subsequent hospital visit by physician [facility] Provider [facility] Comment on above: F39/F41.1/E66.9 Start: 02-09-2021 Patient encounter procedure Roxane Sterling Bolton PA-C Work Phone: [facility] Start: 02-09-2021 Progress Note Roxane braun PA-C [facility] Start: 11-04-2020 Patient encounter procedure Hal Garcia MD Work Phone: [facility] Start: 11-04-2020 Progress Note Hal hugo MD Work Phone: [facility] Start: 09-25-2020 Patient encounter procedure Hal Garcia MD Work Phone: [facility] Start: 09-25-2020 Progress Note Hal hugo MD [facility] Procedures Date Procedure Procedure Detail Performing Clinician Start: 02-14-2025 CT of pelvis with contrast Pam Rogers FINANCE LECTURER-C Work Phone: Start: 02-03-2025 Gram stain microscopy M britney Mendezs FINANCE LECTURER-C Work Phone: Start: 02-03-2025 End: 02-03-2025 Microbial culture, routine Pam rios FINANCE LECTURER-C Work Phone: Start: 12-08-2023 Microscopic observat ion [Identifier] in Cervix by Cyto stain Melvin Ramirez MD Work Phone: Plan of Treatment Date Care Activity Detail Author Start: 2074 RSV Immunization for Adults (1 - 1-dose 75+ series) RSV Immunization for Adults (1 - 1-dose 75+ series) [facility] Start: 2059 RSV Immunization age d 60 or older (1 - 1-dose 60+ series) RSV Immunization aged 60 or older (1 - 1-dose 60+ series) [facility] Start: 2049 Zoster Vaccines (1 of 2) Zoster Vacc uma (1 of 2) [facility] Start: 12-07-2026 Screening for malign ant neoplasm of cervix Pap Smear [facility] Start: 02-10-2025 Influenza vaccination Influenz a Vaccine (Season Ended) [facility] Start: 12-09-2024 End: 12-09-2024 Patient encounter procedure [facility] DIETITIAN ASSISTANT Start: 02-11-2024 COVID-19 Vaccine ( season) COVID-19 Vaccine ( season) [facility] Start: 02-11-2024 Influenza vaccination Influenza Vacc ine (#1) [facility] Start: 12-08-2023 End: 12-08-2023 Patient encounter procedure 12/08/2023 4:15 PM EDT Office Visit [facility] DIETITIAN ASSISTANT [address] [facility] [address] [facility] [place] [address] Melvin Ramirez MD [address] [facility] [address] [place] [address] [facility] DIETITIAN ASSISTANT Start: 09-08-2023 End: 09-08-2023 Patient encounter procedure 09/08/2023 4:00 PM EDT Office Visit [facility] DIETITIAN ASSISTANT [address] [place] [address] [address] [place] [address] Melvin Ramirez MD [address] [facility] [address] [place] [address] [facility] DIETITIAN ASSISTANT Start: 09-07-2023 HPV Vaccines (2 - 3- dose series) HPV Vaccines (2 - 3-dose series) [facility] Start: 02-10-2023 COVID-19 Vaccine ( season) COVID-19 Vaccine ( season) [facility] Start: 02-10-2023 Influenza vaccination Influenza Vacc ine (#1) [facility] Start: 06-12-2022 DEPRESSION ASSESSMENT DEPRESSION ASS ESSMENT [facility] Start: 02-10-2022 Influenza vaccination INFLUENZA (#1) [facility] Start: 01-22-2022 DTaP/Tdap/Td Vaccine s (2 - Td or Tdap) DTaP/Tdap/Td Vaccines (2 - Td or Tdap) [facility] Start: 2020 PAP TESTING PAP TESTING [facility] Start: 2020 Screening for malign ant neoplasm of cervix Pap Smear [facility] Start: 2018 Hepatitis B Vaccines (1 of 3 - 19+ 3-dose series) Hepatitis B Vaccines (1 of 3 - 19+ 3-dose series) [facility] Start: 2018 Urine microalbumin profile DTAP,TDAP,TD (1 - Tdap) [facility] Start: 2017 CHLAMYDIA SCREENING (18-24) CHLAMYDIA SCREENING (18-24) [facility] Start: 2017 Diabetes mellitus screening Diabetes Screening [facility] Start: 2017 GC (GONORRHEA) SCREE MATTY (18-24) GC (GONORRHEA) SCREENING (18-24) [facility] Start: 2017 HEPATITIS C SCREENING HEPATITIS C SC REENING [facility] Start: 2017 Hepatitis C screening Hepatitis C Sc [facility] Start: 2017 HIV SCREENING HIV SCREENING [facility] Start: 2013 PEDS TO ADULT TRANSI TION ANNUAL ASSESSMENT PEDS TO ADULT TRANSITION ANNUAL ASSESSMENT [facility] Start: 2012 Varicella vaccination Varicell a Vaccines (1 of 2 - 13+ 2-dose series) [facility] Start: 02-20-2012 Varicella vaccination Varicell a Vaccines (1 of 2 - 2-dose childhood series) [facility] Start: 2011 Depression Screening Depression Scre ening [facility] Start: 2011 PEDS TO ADULT TRANSI TION INITIAL DISCUSSION PEDS TO ADULT TRANSITION INITIAL DISCUSSION [facility] Start: 2010 HPV VACCINE (1 - 2-d ose series) HPV VACCINE (1 - 2-dose series) [facility] Start: 2009 MENINGOCOCCAL B: Consider based on risk (1 of 2 - Risk Bexsero 2-dose series) MENINGOCOCCAL B: Consider based on risk (1 of 2 - Risk Bexsero 2-dose series) [facility] Start: 1999 COVID-19 VACCINE (#1) COVID-19 VACCI NE (#1) [facility] Start: 1999 HEPATITIS B (1 of 3 - 3-dose series) HEPATITIS B (1 of 3 - 3-dose series) [facility] Start: 1999 Hepatitis B Vaccines (1 of 3 - 3-dose series) Hepatitis B Vaccines (1 of 3 - 3-dose series) [facility] Start: 1999 HIV screening HIV Screening [facility] Start: 1999 Lipid panel Lipid Panel [facility] Bacteria identified in Unspecified specimen by Aerobe culture Culture, Aerobic Bacteria with Gram Stain Microbiology Routine Abscess of right Bartholin's gland Ordered: 08/25/2023 [facility] Work Phone: Comment on above: Ordered: 08/25/2023 Bacteria identified in Unspecified specimen by Anaerobe culture Anaerobic culture Microbiology Routine Abscess of right Bartholin's gland Ordered: 08/25/2023 [facility] Comment on above: Ordered: 08/25/2023 Immunizations Immunization Date Immunization Notes Care Provider Robert singletary 08-10-2023 HPV, unspecified formulation Melvin Ramirez MD Work Phone: [facility] Payers Date Payer Category Payer Self-pay 2024 Unknown [id number] 2020 Medicaid [id number] 2020 Medicaid [id number] 1999 Unknown [id number] 2.16.8 [id number] 1999 Unknown [id number] 2.16.8 [id number] 1999 Unknown [id number] 2.16. [id number] Unknown [id number] 2.16.8 [id number] Unknown [id number] 2.16.8 [id number] Unknown [id number] 2.16.8 [id number] Unknown [id number] 2.16.8 [id number] Unknown [id number] 2.16.8 [id number] Social History Date Type Detail Facility Tobacco smoking status TNIS Tobacco smoking consumption unknown [facility] Start: 1999 Sex Assigned At Not on file [facility] Start: 06-28-2022 End: 02-03-2025 Tobacco smoking status NHIS Ex-smoker [facility] History of tobacco use Current smoker [facility] History of tobacco use Cigarette Smoker [facility] Start: 06-28-2022 Tobacco use and exposure Former smokeless tobacco user [facility] Start: 06-28-2022 End: 09-08-2023 Alcohol intake Ex-drinker (finding) [facility] Start: 06-28-2022 History SDOH Stress 1 [facility] Start: 08-25-2023 Tobacco smoking status [facility] Never smoked tobacco [facility] Start: 08-25-2023 Tobacco use and exposure Smokeless tobacco non-user [facility] Start: 08-25-2023 End: 12-08-2023 History of Social function [facility] Start: 08-25-2023 End: 12-08-2023 Tobacco use panel [facility] Start: 12-08-2023 Tobacco use and exposure User of smokeless tobacco [facility] Start: 12-08-2023 Alcoholic beverage intake Current drinker of alcohol (finding) [facility] Start: 12-08-2023 Tobacco Comment vape [facility] Start: 12-08-2023 Alcohol Comment social [facility] Start: 01-10-2022 Sex Female (finding) [facility] Start: 1999 Sex Assigned At Female [facility] NEGATED: Highlighted rowStart: NINF History of tobacco use Passive smoker [facility] Clinical Notes 09-25-2020 to 02-03-2025 Note Date & Type Note Facility 02-03-2025 Evaluation note Diagnosis Onset Date Resolution Hidradenitis axillaris acute [facility] 2024 8:44am Vaginoperineal fistula acute [facility] 2024 8:44am Vulvar cyst acute February 03, 2025 8:44am [facility] Work Phone: 1(134) 364-254807-24-2025 Note. MICRO - Microbiology PROCEDURE: Culture Wound Aerobic with Gram Stain [*1] SOURCE: Abscess BODY SITE: Vulva COLLECTED DATE/TIME: 12/30/2024 13:26 EDT RECEIVED DATE/TIME: 12/30/2024 15:49 EDT START DATE/TIME: 12/30/2024 15:49 EDT FREE TEXT SOURCE: FINAL REPORTS Final Report [] Verified Date/Time/Personnel: 01/02/2025 07:18 EDT Normal Vaginal Kat: Present Neisseria gonorrhoeae: Negative PRELIMINARY REPORTS Preliminary Report [] Verified Date/Time/Personnel: 12/31/2024 11:30 EDT Normal Vaginal Kat: Present Neisseria gonorrhoeae: Pending STAINS GS [] Verified Date/Time/Personnel: 12/30/2024 18:22 EDT No organisms seen. Performing Locations *1: This test was performed at: [facility], [address] [place] [address], [id number]- , [facility] [id number] Telephone encounter Note* Telephone Encounter - Vivien Barakat MA - 10/09/2024 8:52 AM EDT Called and LVM to schedule an appointment / see how she is doing. Informed patient to call back if she is wanting to follow up. Vivien Barakat MA [id number] Miscellaneous Notes* Telephone Encounter - Vivien Barakat MA - 10/09/2024 8:52 AM EDT Called and LVM to schedule an appointment / see how she is doing. Informed patient to call back if she is wanting to follow up. Vivien Barakat MA * Telephone Encounter - Marta Russ RN - 10/08/2024 12:12 PM EDT S: Patient Provider Brooke Esquivel called the clinical access center stating she has a lump in the vagina B: Concern for calixto gland blockage A: Reporting the gland was excised in the office and is draining . She has increased pain and is concerned she may need surgical intervention . R:No availability at the office today . Brooke stated she will send her to the ED . Patient instructed to call back with worsening symptoms, concerns or questions. Reason for Disposition SEVERE vaginal pain and not improved 2 hours after pain medicine Protocols used: Vaginal [id number] documented in this [facility]04-29-2025 Telephone encounter Note* Telephone Encounter - Marta Russ RN - 10/08/2024 12:12 PM EDT S: Patient Provider Brooke Esquivel called the clinical access center stating she has a lump in the vagina B: Concern for calixto gland blockage A: Reporting the gland was excised in the office and is draining . She has increased pain and is concerned she may need surgical intervention . R:No availability at the office today . Brooke stated she will send her to the ED . Patient instructed to call back with worsening symptoms, concerns or questions. Reason for Disposition SEVERE vaginal pain and not improved 2 hours after pain medicine Protocols used: Vaginal Otlqpiug-[id number]-KT [facility] [id number] History of Present illness Narrative* Melvin Ramirez MD - 09/08/2023 4:00 PM EDT Images from the original note were not included. Anika Metzger 09/08/2024 23 y.o. Chief Complaint Patient presents with Follow-up 2 wk follow up - states the cyst is much better, smaller and she cannot see it anymore, no pain anymore Primary Care Physician: Brooke Esquivel HPI: Anika Metzger is a 23 y.o. female presents for bartholins cyst follow up. Doing much better. Pain is resolved. No discharge or fevers. Finished course of antibiotics. Is concerned about resuming sex. Also discussed control. Previously had weight gain on OCP sprintec, as well as decreased sex drive and acne. Past Medical History: Diagnosis Date Migraine No past surgical history on file. Family History Problem Relation Name Age of Onset Diabetes Mother OB History Para Term AB Living 1 1 0 SAB IAB Ectopic Multiple Live Births # Outcome Date GA Lbr Tarik/2nd Weight Sex Delivery Anes PTL Lv 1 AB 06/2023 Surgical Florent[facility] MEDICATIONS: Current Outpatient Medications Medication Sig Dispense Refill acyclovir (Zovirax) 400 MG tablet Take 400 mg by mouth daily. drospirenone-ethinyl estradiol (Cailin, Gianvi) 3-0.02 MG tablet Take 1 tablet by mouth daily. 28 tablet 11 Drysol 20 % external solution APPLY 1 APPLICATION TOPICALLY TWICE A WEEK NEEDED FOR EXCESSIVE SWEATING fluticasone (Flonase) 50 MCG/ACT nasal spray omeprazole (PriLOSEC) [address] capsule propranolol LA (Inderal LA) 60 MG 24 hr capsule QUEtiapine (SEROquel) 25 MG tablet sulfamethoxazole-trimethoprim (Bactrim DS) 800-160 MG tablet topiramate (Topamax) 25 MG tablet traMADol (Ultram) 50 MG tablet No current facility-administered medications for this visit. ALLERGIES: Allergies as of 09/08/2023 (No Known Allergies) REVIEW OF SYSTEMS Review of Systems Constitutional: Negative for chills and fever. HENT: Negative for congestion and sore throat. Respiratory: Negative for cough and shortness of breath. Cardiovascular: Negative for chest pain and leg swelling. Gastrointestinal: Negative for abdominal pain, constipation, diarrhea, nausea and vomiting. Genitourinary: Negative for dysuria, frequency, menstrual problem, pelvic pain, urgency, vaginal bleeding, vaginal discharge and vaginal pain. Musculoskeletal: Negative for back pain. Skin: Negative for wound. Neurological: Negative for syncope and weakness. Psychiatric/Behavioral: Negative for behavioral problems. PHYSICAL EXAMINATION: BP 114/74 Pulse 85 Wt 156 lb (70.8 kg) LMP 08/22/2023 BMI 31.51 kg/m Physical Exam Constitutional: Appearance: Normal appearance. HENT: Head: Normocephalic and atraumatic. Mouth/Throat: Mouth: Mucous membranes are moist. Eyes: Extraocular Movements: Extraocular movements intact. Cardiovascular: Rate and Rhythm: Normal rate and regular rhythm. Pulmonary: Effort: Pulmonary effort is normal. Abdominal: General: There is no distension. Palpations: Abdomen is soft. There is no mass. Tenderness: There is no abdominal tenderness. There is no guarding or rebound. Genitourinary: Comments: deferred Musculoskeletal: General: No swelling. Normal range of motion. Cervical back: Normal range of motion. Skin: General: Skin is warm and dry. Neurological: General: No focal deficit present. Mental Status: She is alert and oriented to person, place, and time. Psychiatric: Mood and Affect: Mood normal. Behavior: Behavior normal. Thought Content: Thought content normal. ASSESSMENT: Diagnosis Plan 1. Abscess of right Bartholin's gland 2. control counseling drospirenone-ethinyl estradiol (Juan Diego Simeon) 3-0.02 MG tablet PLAN: - doing much better. Reviewed recurrence risk, and should be evaluated if symptoms return - discussed risks of dyspareunia. Would continue pelvic rest for 1-2 more weeks. Could consider pelvic floor PT if is an issue - discussed control Declines LARC. Previously on sprintec and had side effects. Trial Cailin. Follow up in about 3 months (around 12/09/2023) for Annual Exam. No orders of the defined types were placed in this encounter. documented in this [facility]03-15-2024 History of Present illness Narrative* Brittani Coates MA - 08/25/2023 12:30 PM EDT The patient, Anika Metzger, identity was verified by . Supervising provider for clinic visit: Dr Ramirez. * Melvin Ramirez MD - 08/25/2023 12:30 PM EDT Images from the original note were not included. Anika Metzger 08/25/2024 23 y.o. Chief Complaint Patient presents with Wound Infection Bartholin's Gland Primary Care Physician: No primary care provider on file. HPI: Anika Metzger is a 23 y.o. female presents for bartholins abscess. Seen at [place] [facility]. Diagnosed with bartholins abscess. Treated with bactrim (currently on day 4), then received doses of tramadol and rocephin. Notes that the abscess started to spontaneously drain last night. Had negative STI tesing . She is having a lot of pain, but it has improved since it started to drain Past Medical History: Diagnosis Date Migraine History reviewed. No pertinent surgical history. Family History Problem Relation Name Age of Onset Diabetes Mother OB History Para Term AB Living 1 1 0 SAB IAB Ectopic Multiple Live Births # Outcome Date GA Lbr Tarik/2nd Weight Sex Delivery Anes PTL Lv 1 AB MEDICATIONS: Current Outpatient Medications Medication Sig Dispense Refill acyclovir (Zovirax) 400 MG tablet Take 400 mg by mouth daily. Drysol 20 % external solution APPLY 1 APPLICATION TOPICALLY TWICE A WEEK NEEDED FOR EXCESSIVE SWEATING fluticasone (Flonase) 50 MCG/ACT nasal spray omeprazole (PriLOSEC) [address] capsule propranolol LA (Inderal LA) 60 MG 24 hr capsule QUEtiapine (SEROquel) 25 MG tablet sulfamethoxazole-trimethoprim (Bactrim DS) 800-160 MG tablet topiramate (Topamax) 25 MG tablet traMADol (Ultram) 50 MG tablet No current facility-administered medications for this visit. ALLERGIES: Allergies as of 08/25/2023 (No Known Allergies) REVIEW OF SYSTEMS Review of Systems Constitutional: Negative for chills and fever. Gastrointestinal: Negative for abdominal pain. Genitourinary: Positive for pelvic pain, vaginal bleeding, vaginal discharge and vaginal pain. PHYSICAL EXAMINATION: BP 124/73 Pulse 96 Ht 4' 11 (1.499 m) Wt 163 lb (73.9 kg) LMP 08/22/2023 BMI 32.92 kg/m Physical Exam Constitutional: Appearance: Normal appearance. HENT: Head: Normocephalic and atraumatic. Mouth/Throat: Mouth: Mucous membranes are moist. Eyes: Extraocular Movements: Extraocular movements intact. Cardiovascular: Rate and Rhythm: Normal rate and regular rhythm. Pulmonary: Effort: Pulmonary effort is normal. Abdominal: General: There is no distension. Palpations: Abdomen is soft. There is no mass. Tenderness: There is no abdominal tenderness. There is no guarding or rebound. Genitourinary: Exam position: Lithotomy position. Labia: Right: No rash or lesion. Left: No rash or lesion. Vagina: No vaginal discharge or erythema. Cervix: No cervical motion tenderness, discharge, friability, lesion, erythema or cervical bleeding. Uterus: Normal. Not enlarged and not tender. Adnexa: Right adnexa normal and left adnexa normal. Right: No mass or tenderness. Left: No mass or tenderness. Comments: Right bartholins abscess palpated, with still approx 2 cm area of fluctuance. Small sub cm opening noted just at the introitis, draining bloody fluid. But fluid collection still palpated Musculoskeletal: General: No swelling. Normal range of motion. Cervical back: Normal range of motion. Skin: General: Skin is warm and dry. Neurological: General: No focal deficit present. Mental Status: She is alert and oriented to person, place, and time. Psychiatric: Mood and Affect: Mood normal. Behavior: Behavior normal. Thought Content: Thought content normal. Procedure. Patient was placed in the dorsal lithotomy position. The cyst was cleansed with betadine solution. 3 cc of 1% lidocaine without epinephrine was injected at the opening behind the hymnal ring. A culture swab was collected. A cute tip was used to break up Loculations and further drainage of purulent and bloody fluid. Patient tearful, but tolerated procedure. ASSESSMENT: Diagnosis Plan 1. Abscess of right Bartholin's gland Culture, Aerobic Bacteria with Gram Stain Anaerobic culture PLAN: - patient declined word catheter placement due to discomfort - Patient instructed to wear peripad to absorb any discharge. Counseled on need for pelvic rest. Given info for sitz baths and OTC analgesia for pain control. - She is aware of the possibility of recurrence that may require marsupialization or excision, especially without the word catheter. - Instructed to call the office if she experiences any swelling, pain, vaginal discharge, or fever. - Should continue her script for bactrim Follow up in about 2 weeks (around 09/08/2023) for Follow Up. Orders Placed This Encounter Procedures Culture, Aerobic Bacteria with Gram Stain Anaerobic culture Visit: New patient. I spent total time today of 45 minutes counseling, coordinating care and provided discussion regarding multiple complex diagnosis, treatment plan and follow up. documented in this [facility]01-18-2023 Miscellaneous Notes* Telephone Encounter - Cadence Colunga DO - 06/29/2022 7:48 AM EST Called patient with positive COVID result. Cadence Colunga DO documented in this [facility]01-17-2023 NoteHNO ID: [id number] Author: Yohana Ravi LPN Service: ? Author Type: LICENSED NURSE Type: Progress Notes Filed: 06/28/2022 10:11 AM Note Text: EKG performed and pt tolerated well. Yohana Ravi [facility]01-17-2023 NoteHNO ID: [id number] Author: Miriam Gonzalez APRN.VERITO Service: ? Author Type: Nurse Practitioner Type: Progress Notes Filed: 06/28/2022 10:11 AM Note Text: Anika is a 22 year old female arriving at clinic today for Patient presents with: hot cold sweats: All s/s started Monday Syncope: This am Vomiting Cough Sore Throat chest congestion and ear congestion: Chest is sore from coughing Patient was on the toilet having a bowel movement when she had the dizziness, sweaty, and laid her head down on the sink. She thinks she passed out for a couple of seconds but came to still on the toilet. She had nausea. She also complains of sinus pain, congestion, cough, and sore throat. Ear pressure as well as chest congestion. Denies shortness of breath, chest pain, jaw pain. Vital Signs: BP 111/79 Pulse 108 Temp 97.7 Resp 20 Wt 185 lb (83.9kg) SpO2 97% LMP 06/15/2022 Allergies: ALLERGIES No Known Allergies Current Medications: pseudoephedrine HCl (SUDAFED ORAL) Take by mouth. acetaminophen (TYLENOL EXTRA STRENGTH) 500 mg tablet Take 500 mg by mouth every 8 hours as needed. No past medical history on file. No past surgical history on file. Review of Systems: Review of Systems see HPI Exam: Physical Exam Vitals and nursing note reviewed. Constitutional: General: She is not in acute distress. Appearance: Normal appearance. She is obese. She is ill-appearing. She is not diaphoretic. HENT: Head: Normocephalic and atraumatic. Right Ear: No tenderness. Tympanic membrane is bulging. Tympanic membrane is not injected. Left Ear: No tenderness. Tympanic membrane is bulging. Tympanic membrane is not injected. Nose: Nasal tenderness, mucosal edema, congestion and rhinorrhea present. Rhinorrhea is purulent. Mouth/Throat: Pharynx: Oropharynx is clear. Eyes: Conjunctiva/sclera: Conjunctivae normal. Cardiovascular: Rate and Rhythm: Normal rate and regular rhythm. Heart sounds: Normal heart sounds. Pulmonary: Effort: Pulmonary effort is normal. Breath sounds: Normal breath sounds. Abdominal: General: Bowel sounds are normal. Palpations: Abdomen is soft. Skin: General: Skin is warm. Neurological: Mental Status: She is alert. ASSESSMENT/PLAN: 1. Chest pain, unspecified type - ICD9: 786.50, ICD10: R07.9 (primary diagnosis) - Electrocardiogram: see chart Follow up with PCP Reviewed with Dr. Colunga and recommended follow up with PCP if symptomatic, patient is assymptomatic - ECG COMPLETE 2. Acute non-recurrent maxillary sinusitis - ICD9: 461.0, ICD10: J01.00 - Will begin treatment with Amoxicillin for 10 days - Supportive care with plenty of fluids, rest, and analgesia prn. - AMOXICILLIN 875 MG TABLET 3. Fever, unspecified fever cause - ICD9: 780.60, ICD10: R50.9 Tylenol as directed - RAPID FLU A AND B - Negative - RESPIRATORY PANEL BY RAPID PCR (WITH COVID) - will call with results Patient required to have a COVID test for work. Reviewed exam results in detail and plan with patient Patient understands and agreed. Miriam Gonzalez APRN.RAIL OPERATOR .[facility]08-31-2021 History of Present illness Narrative* Roxane Bolton PA-C - 02/09/2021 12:51 PM EDT DATE OF SERVICE: 02/07/2021 HISTORY OF PRESENT ILLNESS: A 20-year-old female presenting with a chief complaint of loss of taste and smell, nasal congestion, sinus drainage, headache, fatigue, cough, wheezing, shortness of breath, and nausea. Denies any fevers, chills, body aches. 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 PAST MEDICAL HISTORY: Significant for depression and mental health issues. PAST SURGICAL HISTORY: Significant for oral surgery. SOCIAL HISTORY: She does report smoking a half pack of cigarettes a day, occasional alcohol use. FAMILY HISTORY: High blood pressure and diabetes. MEDICATIONS: 1. control. 2. Fluoxetine. 3. Acetaminophen. 4. Mucinex. 5. NyQuil. ALLERGIES: No known drug allergies. No other allergies indicated. REVIEW OF SYSTEMS:Constitutional: Denies any fevers, chills, or body aches. She does have slight fatigue. HEENT: Congestion, drainage. No sore throat. Bilateral ear pain. Pulmonary: She does have cough, wheezing, shortness of breath. Cardiac: No chest pains or heart palpitations. Abdominal: She does have slight nausea. No vomiting, diarrhea, or abdominal pain. PHYSICAL EXAMINATION: Blood pressure 119/73, pulse 86, respiratory rate 24, temperature 97.6, and oxygen is 99%. General Appearance: The patient is sitting in the exam room, no acute distress, alert and oriented x3. Pulmonary: The lungs are clear. No wheezing, rales, or rhonchi. Cardiac: Normal rate and rhythm. No murmurs or gallops auscultated. Skin exam overall is within normal limits. HEENT: Bilateral tympanic membranes nonerythematous, non-bulging. Pharynx nonerythematous. Uvula midline. Abdomen: Abdomen soft, nontender. Normal bowel sounds. DIAGNOSTICS: Chest x-ray obtained. My interpretation is no acute process. COVID-19 testing performed; results still pending. ASSESSMENT AND PLAN/DIAGNOSIS: Upper respiratory infection, possible COVID. Patient given a note to be off work until COVID results are back. I did send over Bromfed cough syrup 5 mL every 6 hours as needed for cough and cold symptoms as well as an albuterol inhaler to use as needed. The patient was agreeable, stable. If symptoms worsen, follow up with primary care. Otherwise, if symptoms worsen, go to the ER. Patient agreeable, given a note to be off work until COVID results are back. Tylenol, Motrin, fluids, rest. All questions answered. PIOTR Mathis/[id number] [facility] File#: [id number] END OF DOCUMENT / CHANGE LOG FOLLOWS Last Edited By Josemanuel. Signed By Roxane Bolton #[email or web address] Roxane Bolton #[email or web address] on 02/10/2021 08:17 ET on 02/10/2021 08:17 ET Revision Number - 2 ^^^ Verified/Reviewed by 02/10/21816 [email or web address] [facility] PATIENT NAME: ANIKA METZGER [address] [facility] [address] MEDICAL REC #: [id number] [place] [address] ENIGMA STATCARE REPORT STATCARE PHYSICIAN documented in this encounterPaulding [facility] Hospital05-26-2021 History of Present illness Narrative* Hal Garcia MD - 11/04/2020 4:44 PM EDT DATE OF SERVICE: 11/02/2020 CHIEF COMPLAINT: Cough, sore throat. HISTORY OF PRESENT ILLNESS: This 20-year-old female presented with cough and sore throat going on since . No other complaint. DRUG ALLERGIES: None. MEDICATIONS: The patient is on: 1. Fluoxetine. 2. control. 3. Nyquil. PHYSICAL EXAMINATION: Blood pressure is 124/86, pulse 85, respiratory rate 16, temperature 98.6, pulse 97%. Pain is 10/10. HEENT: Clear nasal drainage. TMs clear. Pharynx clear. Lungs and heart within normal limits. ASSESSMENT: Seasonal allergies. PLAN: I discussed with the patient the treatments and plan. I placed the patient on loratadine 10 mg once a day and prednisone tapering dose. Have patient follow up as needed. Hal Garcia MD [id number] [facility] File#: [id number] END OF DOCUMENT / CHANGE LOG FOLLOWS Last Edited By Elec. Signed By Hal Garcia MD #Hal Ely MD on 11/04/2020 17:03 ET on 11/04/2020 17:03 ET Revision Number - 2 ^^^ Verified/Reviewed by 11/04/20 1703 KYRIE [facility] PATIENT NAME: ANIKA METZGER [address] [facility] [address] MEDICAL REC #: [id number] [place] [address] ENIGMA STATCARE REPORT STATCARE PHYSICIAN documented in this encounterPaulding County Hospital04-16-2021 History of Present illness Narrative* Hal Garcia MD - 09/25/2020 6:57 AM EDT DATE OF SERVICE: 09/24/2020 CHIEF COMPLAINT: Right knee pain. HISTORY OF PRESENT ILLNESS: A 20-year-old female presented with right knee pain. The patient states he turned the knee in and felt a pop. She says she does it all the time .but this time when she popped it it was louder than usual, and it hurt. DRUG ALLERGIES: None. MEDICATION: 1. Fluoxetine. 2. control. PHYSICAL EXAMINATION: Blood pressure is 119/70, pulse 87, respiratory rate 18 ,temperature 98.3, pulse oximetry 94%. Pain 7 out of 10. Examination of the right knee: There is swelling. Flexion and extension causing slight pain. Anterior and posterior drawer signs were negative. TESTS: X-ray done was negative. ASSESSMENT: Right knee pain, sprain, tendinitis. PLAN: Discussed with the patient treatments and plan. I placed the patient on prednisone tapering dose, ice, and elevation for the swelling. Have the patient follow up as needed. Treatments and plans thoroughly discussed. Hal Garcia MD [id number] [facility] File#: [id number] END OF DOCUMENT / CHANGE LOG FOLLOWS Last Edited By Elec. Signed By Hal Garcia MD #Hal Ely MD on 09/26/2020 11:49 ET on 09/26/2020 11:49 ET Revision Number - 2 ^^^ Verified/Reviewed by 09/26/20 1149 [address] [facility] PATIENT NAME: ANIKA METZGER [address] [facility] [address] MEDICAL REC #: [id number] [place] [address] ENIGMA STATCARE REPORT STATCARE PHYSICIAN documented in this encounterPaulding County HospitalEvaluation note* Diagnosis Abscess of right Bartholin's gland- [facility]* Diagnosis Abscess of right Bartholin's gland- Primary control counseling [facility]* Diagnosis control counseling- Primary [facility] noteNo assessment information availableBlSan Vicente Hospital Work Phone: Instructions* Attachments The following attachments cannot be sent through Care Everywhere. * Bartholin Gland Cyst (Syriac) * How to Do a Sitz Bath (Syriac) documented in this [facility] for referral (narrative)No reason for referral information availableCincinnati Medical Services Work Phone: Summary Purpose Family History No Family History Records Found Relationship Condition Age at Onset Recorded Date/T drake grandmother Malignant neoplasm of breast Unknown Diabetes mellitus Unknown father Alcoholism Unknown mother Diabetes mellitus Unknown Anxiety Unknown aunt Malignant neoplasm of breast Unknown Advance Directives No Advanced Directives Records FoundNo Advanced Directives Records FoundNo Advanced Directives Records FoundNo Advanced Directives Records FoundNo Advanced Directives Records FoundNo Advanced Directives Records Found Health Concerns Infection Onset Date Last Indicated Resolved Time COVID-19 Rule-Out 06/28/2022 06/28/2022 06/29/2022 4:01 AM EST COVID-19 Confirmed 06/28/2022 06/28/2022 Chief Complaint and Reason for Visit Chief Complaint Admit Date Vaginal Cyst (Daily) February 03, 2025 8:44am Reason for Visit Admit Date Hidradenitis axillaris February 03, 2025 8:44am Vaginoperineal fistula February 03, 2025 8:44am Vulvar cyst February 03, 2025 8: 44am Chief Complaint Admit Date Vaginal Cyst (Daily) February 03, 2025 8:44am VAGINAL FISTULA February 14, 2025 10:46am I&D under anesthesia February 25 1:38pm Additional Source Comments Source Comments (unrecognize d section and content) In the event this informatio n is protected by the Federal Confidentiality of Alcohol and Drug Abuse Patient Records regulations: The Federal rules restrict any use of the information to criminally investigate or prosecute any alcohol or drug abuse patient.Paulding County HospitalIn the event this information is protected by the Federal Confidentiality of Alcohol and Drug Abuse Patient Records regulations: The Federal rules restrict any use of the information to criminally investigate or prosecute any alcohol or drug abuse patient.[facility] HospitalIn the event this information is protected by the Federal Confidentiality of Alcohol and Drug Abuse Patient Records regulations: The Federal rules restrict any use of the information to criminally investigate or prosecute any alcohol or drug abuse patient.[facility] HospitalIn the event this information is protected by the Federal Confidentiality of Alcohol and Drug Abuse Patient Records regulations: The Federal rules restrict any use of the information to criminally investigate or prosecute any alcohol or drug abuse patient.[facility]In the event this information is protected by the Federal Confidentiality of Alcohol and Drug Abuse Patient Records regulations: The Federal rules restrict any use of the information to criminally investigate or prosecute any alcohol or drug abuse patient.[facility]In the event this information is protected by the Federal Confidentiality of Alcohol and Drug Abuse Patient Records regulations: The Federal rules restrict any use of the information to criminally investigate or prosecute any alcohol or drug abuse patient.[facility] INFORMATION SOURCE (unrecogn ized section and content) DATE CREATED AUTHOR 11/07/2021 [facility] [place] DATE CREATED AUTHOR AUTHOR'S ORGANIZ ATION 08/20/2022 [facility] DATE CREATED AUTHOR AUTHOR'S ORGANIZ ATION 08/16/[address] [facility] ([place]) DATE CREATED AUTHOR AUTHOR'S ORGANIZ ATION 10/09/2024 [facility] DATE CREATED AUTHOR AUTHOR'S ORGANIZ ATION 01/05/2025 [facility] DATE CREATED AUTHOR AUTHOR'S ORGANIZ ATION 03/04/2025 [facility] Reason for Visit (unrecogniz ed section and content) Reason Comments Results Reason Comments Wound Infection Bartholin's Gland Reason Comments Follow-up 2 wk follow up - sta echo the cyst is much better, smaller and she cannot see it anymore, no pain anymore Reason Onset Date Comments Cyst 10/08/2024 Care Teams (unrecognized sec tion and content) Manager Imaging Relationship Specialty Start Date End Date Brooke Esquivel [address] [place] [address] PCP - General Nurse Practitioner Family 08/25/23 Manager Imaging Relationship Specialty Start Date End Date Brooke Esuqivel APRN - CNP PCP - General Nurse Practitioner Family 08/25/23 Manager Imaging Relationship Specialty Start Date End Date Brooke Esquivel APRN - CNP PCP - General Nurse Practitioner Family 08/25/23 Team Status: Inactive Member Role/Relationship Status Dates Pam Rogers FINANCE LECTURER, FINANCE LECTURER-C Attending Provider Active Start: February 03, 2025 End: February 03, 2025 Team Status: Active Member Role/Relationship Status Dates BROOKE ESQUIVEL Primary Care Provider Active Team Status: Inactive Member Role/Relationship Status Dates Pam Rogers FINANCE LECTURER, FINANCE LECTURER-C Attending Provider Active Start: February 03, 2025 End: February 03, 2025 Team Status: Inactive Member Role/Relationship Status Dates Pam Rogers FINANCE LECTURER, FINANCE LECTURER-C Attending Provider Active Start: February 03, 2025 End: February 03, 2025 Pam Rogers FINANCE LECTURER, FINANCE LECTURER-C Referring Provider Active Start: February 03, 2025 End: February 03, 2025 Team Status: Inactive Member Role/Relationship Status Dates Pam Rogers FINANCE LECTURER, FINANCE LECTURER-C Attending Provider Active Start: February 03, 2025 End: February 03, 2025 Pam Rogers FINANCE LECTURER, FINANCE LECTURER-C Referring Provider Active Start: February 03, 2025 End: February 03, 2025 Team Status: Active Member Role/Relationship Status Dates Pam Rogers FINANCE LECTURER, FINANCE LECTURER-C Attending Provider Active Start: February 14, 2025 Pam Rogers FINANCE LECTURER, FINANCE LECTURER-C Referring Provider Active Start: February 14, 2025 ALVIN MANLEY Primary Care Provider Active Sta rt: February 14, 2025 Team Status: Inactive Member Role/Relationship Status Dates Dr. Jacey Paul DO Attending Provider Activ e Start: February 25, 2025 End: February 25, 2025 Goals (unrecognized section and content) Goals may be documented in a n alternate sectionGoals may be documented in an alternate sectionGoals may be documented in an alternate section FOR RECORDS PERTAINING TO PATIENTS WHO ARE OR HAVE BEEN ENROLLED IN A CHEMICAL DEPENDENCY/SUBSTANCEABUSE PROGRAM, SOME INFORMATION MAY BE OMITTED. This clinical summary was aggregated from multiple sources. Caution should be exercised in using it in the provision of clinical care. This summary normalizes information from multiple sources, and as a consequence, information in this document may materially change the coding, format and clinical context of patient data. In addition, data may be omitted in some cases. CLINICAL DECISIONS SHOULD BE BASED ON THE PRIMARY CLINICAL RECORDS. [facility] [employer] [facility]. provides no warranty or guarantee of the accuracy or completeness of information in this document.
--- NOTE | 2025-03-04 13:28 | HP.PCM_ITS ---
History and Physical Date of Admission: 03/04/25 Intake Vital Signs 02/04/2508:50 02/25/2513:41 Height 4 ft 11 in 4 ft 11 in Weight: 168 lb 165 lb 8 oz BMI 33.9 33.4 BP 112/82 H 115/62 Intake Visit Reasons: I&D under anesthesia Interactive Marketing Strategist Required: No Is patient in pain?: No Allergies cat dander (cats) Allergy (Mild, Verified 02/25/25 13:46) dry skin Medications ?Medication ?Instructions ?Recorded ?Confirmed ?Type cholecalciferol (vitamin D3) 100 100 mcg PO QDAY 01/27/25 02/25/25 Histor y mcg (4,000 unit) tablet drospirenone 3 mg-ethinyl 1 tab PO QDAY 01/27/25 02/25/25 History estradiol 0.03 mg tablet propranolol 60 mg capsule,24 60 mg PO QDAY 01/27/25 02/25/25 History hr,extended release quetiapine 50 mg tablet 50 mg PO QDAY 01/27/25 02/25/25 History inulin-chromium picolinate 2 tab PO 02/03/25 02/25/25 History gram-100 mcg chewable tablet (Fiber Gummies (with chromium)) spironolactone 100 mg tablet 100 mg PO QDAY #60 tabs 02/03/25 5 Rx (Aldactone) Post menopausal: No Patient : No : No Control Method: ocp [facility] Medical History Anxiety and depression Perineal abscess Bartholin's cyst Surgical History H/O oral surgery Family History Grandmother Breast cancer Diabetes Father Alcoholism Mother Diabetes Anxiety Aunt Breast cancer Social History current occupational status: employed current occupation: [employer] Smoking Status: Former smoker quit date: 01/30/25 alcohol intake: never substance use type: does not use seatbelt use: always do you feel safe at home: Yes HPI I&D under anesthesia Details: ANKIT METZGER is a 24 year old who presents for discussion about a vaginal track that expresses purulent material both spontaneously and with manipulation of the gland on the left side of her vagina. Recent MRI shows that she does not have a recto/ vaginal fistula. She had a Bartholin gland cyst I&D'd 2 years ago. She declined the word catheter at that time. It appears that this then developed a superficial fistula within the perineal body. After a long discussion about treatment options, she has decided that she would like for me to open the fistula track for surgical healing. History 1 Elective abortions 1 Hx Para 0 Spontaneous abortions Hx # Term Pregnancies Ectopic pregnancies Hx # Pregnancies Multiple births # of living children 0 ROS Const ROS Unobtainable: All systems reviewed & are unremarkable except as noted in H Resp Resp: Reports system reviewed and no additional complaints, except as documented; Denies cough GI GI: Reports as per HPI Psych Psych: Reports system reviewed and no additional complaints, except as documented Exam Const General: cooperative, healthy appearing, comfortable and no acute distress Resp Effort & Inspection: normal respiratory effort Other: small opening to the left and 3 cm below the perinum. A 2 cm fluctuant gland is palpated on the lower left side of introitus. When this is pushed on, purulent material comes our of the small opening. 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 I have discussed with the patient the risks, benefits, and alternatives of the procedure which include but are not limited to risks of anesthesia, bleeding, infection, possible damage to bowel, bladder, or surrounding vasculature which could lead to additional surgery to evaluate any complications. Patient agrees to procedure and wishes to proceed. ACOG/uptodate references given for additional information regarding procedure. plan is to insert a small lacramal duct probe into the track and unroof the track to allow for secondary healing.
--- NOTE | 2025-03-04 13:28 | PCM.DC ---
Discharge Instructions DC O2, CPAP, BIPAP needs Home O2 Discharge instructions: No Dressing / Incision Discharge Activity: May Not Drive (for 24 hours) and May Take a Tub Bath Return to work on:: 03/11/25 May resume sexual activity in: 4 weeks Weight Bearing Status: Weight bearing as tolerated Lifting Restrictions: none Dressing / Incision Call your doctor if your incision/area has: Sudden Increased Bleeding, Increased Pain/ Swelling, Foul Smelling Discharge and Swelling at the incision site Call your doctor if you observe: Fever of 101 or Higher, Shortness of breath, Dizziness, Chest pain and Calf discomfort Follow Up Care Please Follow Up With: Jacey Paul DO When: 2 weeks Test Results: Test results from this visit will be discussed in further detail at your follow-up appointment, if applicable. Discharge Plan Admission Primary Reason for Your Visit: vaginal cyst incision and drainage Attending Provider: Jacey Paul Primary Care Provider: VINEET GREGORY Instructions Print Language: Beninese Discharge Orders/Prescriptions Prescriptions: New oxycodone-acetaminophen [Percocet] 5-325 mg tablet 1 tab PO Q4H PRN (Reason: pain) 7 Days Qty: 12 0RF Continued Fiber Gummies (with chromium) 2-100 gram-mcg tablet,chewable 2 tab PO DAILY spironolactone [Aldactone] 100 mg tablet 100 mg PO QDAY Qty: 60 2RF Lactobacillus acidophilus 0.5 mg (100 million cell) tablet 0.5 mg PO DAILY propranolol 60 mg capsule,extended release 24 hr 60 mg PO QHS quetiapine 50 mg tablet 50 mg PO QHS drospirenone-ethinyl estradiol 3-0.03 mg tablet 1 tab PO QDAY cholecalciferol (vitamin D3) 100 mcg (4,000 unit) tablet 100 mcg PO QDAY Disposition Disposition (needs filled in before D/C Order can be placed): Home, Self Care
[2025-03-04] MEDS: Lactated Ringers 1,000 ML 1000 ML IV (13:37)
[2025-03-04] MEDS: Midazolam 2 MG/2 ML Syringe IV (13:39)
[2025-03-04] MEDS: fentaNYL 100 MCG/2 ML Ampul IV (13:40)
[2025-03-04] MEDS: Lidocaine 1% (5 ml sdv) 5 ML Vial IV (13:40)
[2025-03-04] MEDS: Lidocaine 1% /Epi 1:100 (20ml) 20 ML Vial (14:15)
[2025-03-04] MEDS: Silver Nitrate (BKC) 1 EACH (14:26)
--- NOTE | 2025-03-04 14:52 | PCM.POST.ANE ---
Anesthesia: Postop Eval I Current Vital Signs Temperature: 98 F Pulse Rate: 93 Blood Pressure: 98/63 Respiratory Rate: 16 Pulse Ox: 96 Oxygen Delivery Method: Room Air Assessment Airway patent: Yes Spontaneous unlabored respirations: Yes Mental status: Awake and Calm nausea: No Vomiting: No Anesthesia Complication: No Fluid Hydration Crystalloid volume administer (ml): 1,000 Total IV fluid infused: 1,000 Progress Note Anesthesia document: Postop Eval 1 completed: Yes
--- NOTE | 2025-03-04 15:13 | POSTOPAN2_ITS ---
Anesthesia Postop Eval I Sum Postop Eval Completion status Anesthesia document: Postop Eval 1 completed: Yes Anesthesia Postop Eval I Summary Anesthesia Postop Eval I Summary: Anesthesia Postop Eval I: Assessment Summary Airway patent Yes 03/04/25 14:53 LEAD BUSINESS [email or web address] Spontaneous unlabored Yes 03/04/25 14:53 LEAD BUSINESS [email or web address] respirations Mental status Awake,Calm 03/04/25 14:53 LEAD BUSINESS [email or web address] nausea No 03/04/25 14:53 LEAD BUSINESS [email or web address] Vomiting No 03/04/25 14:53 LEAD BUSINESS [email or web address] Anesthesia Postop Eval I: Fluid Summary Crystalloid volume administer 1,000 03/04/25 14:53 LEAD BUSINESS [email or web address] (ml) Colloids volume administered ( ml) Blood Product volume administered (ml) Total IV fluid infused 1,000 03/04/25 14:53 LEAD BUSINESS [email or web address] Anesthesia Postop Eval I: Summary Notes Anesthesia Complication No 03/04/25 14:53 LEAD BUSINESS [email or web address] Anesthesia Complication Comment: Post-operative progress note Anesthesia: Postop Eval II Evaluation Mental status: Awake and Calm Pain Level: 0 nausea: No Vomiting: No Complications Anesthesia Complication: No
--- NOTE | 2025-03-04 15:13 | PCM.POSTANE2 ---
Anesthesia Postop Eval I Sum Postop Eval Completion status Anesthesia document: Postop Eval 1 completed: Yes Anesthesia Postop Eval I Summary Anesthesia Postop Eval I Summary: Anesthesia Postop Eval I: Assessment Summary Airway patent Yes 03/04/25 14:53 LACING STRING [email or web address] Spontaneous unlabored Yes 03/04/25 14:53 LACING STRING [email or web address] respirations Mental status Awake,Calm 03/04/25 14:53 LACING STRING [email or web address] nausea No 03/04/25 14:53 LACING STRING [email or web address] Vomiting No 03/04/25 14:53 LACING STRING [email or web address] Anesthesia Postop Eval I: Fluid Summary Crystalloid volume administer 1,000 03/04/25 14:53 LACING STRING [email or web address] (ml) Colloids volume administered ( ml) Blood Product volume administered (ml) Total IV fluid infused 1,000 03/04/25 14:53 LACING STRING [email or web address] Anesthesia Postop Eval I: Summary Notes Anesthesia Complication No 03/04/25 14:53 LACING STRING [email or web address] Anesthesia Complication Comment: Post-operative progress note Anesthesia: Postop Eval II Evaluation Mental status: Awake and Calm Pain Level: 0 nausea: No Vomiting: No Complications Anesthesia Complication: No
--- NOTE | 2025-03-04 19:51 | OP.PCM_ITS ---
Procedures Urinary/Genital [id number]: [id number] I & D of vulva/perineum Operative Report (Standard) Operative Information Date of Procedure: 03/04/25 Pre-Operative Diagnosis: Vaginal/vulvar fistula Post-Operative Diagnosis: vaginal/vulvar fistula Surgery/Procedure Performed: incision of vaginal/vulvar fistula track coal handling supervisor: No Type of Anesthesia: MAC and Topical Anesth RN Documented Start/Stop Times: Operation Date: 03/04/25 13:00 Case Time Into Pre-Op 03/04/25 11:23 Out of Pre-Op 03/04/25 13:33 Anesthesia Start 03/04/25 13:37 Into Room 03/04/25 13:37 Procedure Start 03/04/25 14:02 Procedure End 03/04/25 14:33 Anesthesia End 03/04/25 14:39 Out of Room 03/04/25 14:39 Into Recovery 03/04/25 14:40 Out of Recovery 03/04/25 14:57 Into Phase II Recovery 03/04/25 14:58 Out of Phase II 03/04/25 15:35 Procedure Start Time: 14:02 Procedure Stop Time: 14:33 Select all DRAINS/GRAFTS/IMPLANTS that apply: None Estimated Blood Loss: 10cc Specimen collected: No Description of surgery: The patient was brought to the operating room and Mac anesthesia was administered and found to be adequate. Her legs were placed in stirrups and the vagina, perineum, and vulva were prepped and draped in the usual sterile fashion. A left vular opening was first seen in the office with purulent material that was expressed by pressing down on the left bartholin gland. Currently in the operating room it is found to be smaller than previously seen no purulent material is expressed. The tract was first probed with a medium size lacrimal duct probe. The tract followed from the outer left vulva to the introitus and region of the bartholin gland. Once the probe was placed in the tract,we were able to elevate upward to the skin surface and incise along the probe to open the tract. no infection was identified, however a separate tract was noted to extend in a cephalad direction to the upper edge of the bartholin gland. This separate tract was more rubbery and firm and did not connect to the fistula and was not opened or disrupted. The incised tract was then sutured open with a 2-0 monocryl suture to allow for secondary closure over time. The area was irrigated copiously with sterile saline. minor bleeding at the base of the incision was treated with silver nitrite. The patient tolerated the procedure well. Sponge, lap, and needle counts were correct x 2 and the patient was brought to the operating room in stable condition. Surgical Findings: vulvar vaginal fistula. Complications Complications: No Admit VTE Documentation VTE Present on Admission: No VTE Mechan Device Prophylaxis: SCD's VTE Pharm Prophylaxis ordered?: No
== END 2025-03-04 15:35 | disposition home or self-care (01) ==
LOC: SDC 11:18 → AC 11:19
PROVIDERS: Referring Provider Obstetrics & Gynecology; Visit Provider Obstetrics & Gynecology
PROC: (CPT 56740; principal; 2025-03-04 12:45)
DX: N82.5 Female genital tract-skin fistulae (principal); Z87.891 Personal history of nicotine dependence
CPT/HCPCS: 58999; 00940; 36415; 81025; 85025; 86850; 86900; 86901; J2405

== ENCOUNTER → 2025-04-10 | Outpatient (CLI) | payer BC, SELFPAY ==
[2025-04-10 09:04] LABS: Hematocrit 41.2 % (37-47); Hemoglobin 13.9 g/dL (12.0-15.0); Immature Granulocytes Count 0.040 X10^3/uL (0.0-0.0); Mean Corp Hgb Conc 33.7 g/dL (32-36); Mean Corpuscular Volume 92.0 fL (81-99); Mean Platelet Vol. 8.8 fl (6.2-12.0); NRBC Flagged by Analyzer 0 % (0-5); Platelet Count 374 K/mm3 (150-450); RBC Distribution Width CV 12.6 % (11.6-14.6); RBC Distribution Width SD 42.4 fl (35.1-43.9); Red Blood Count 4.48 M/mm3 (4.2-5.4); White Blood Count 14.0 K/mm3 (4.4-11.0)
[2025-04-10 09:40] LABS: Anion Gap 10 (5-15); BUN 11 mg/dL (4-19); BUN/Creat Ratio 14.0 RATIO (10-20); Calcium,Total 9.3 mg/dL (7.6-11.0); Carbon Dioxide 25.7 mmol/L (21.0-32.0); Chloride 104 mmol/L (98-108); Glucose 92 mg/dL (70-99); Potassium 4.0 mmol/L (3.3-5.1)
== END | disposition home or self-care (01) ==
LOC: BWCLAB 08:50
PROVIDERS: Obstetrics & Gynecology; PCP Nurse Practitioner Family; Referring Provider Obstetrics & Gynecology; Visit Provider Obstetrics & Gynecology
DX: N82.5 Female genital tract-skin fistulae (principal); L73.2 Hidradenitis suppurativa; N36.0 Urethral fistula
CPT/HCPCS: 36415; 80048; 85025; 87070; 87077; 87186; 87205

== ENCOUNTER → 2025-04-14 | Outpatient (CLI) | payer BC, SELFPAY ==
--- NOTE | 2025-04-14 07:46 | CT_ITS ---
PROCEDURE: ABDOMEN/PELVIS WITHOUT CONT 04/14/2025 REASON FOR EXAM: VAGINOPERINEAL FISTULA TECHNIQUE: Procedure Code: CTABDPEL Modality: CT Procedure: ABDOMEN/PELVIS WITHOUT CONT Noncontrast technique limits evaluation of the abdominal and pelvic viscera. Coronal and Sagittal reconstruction series were provided. One or more dose reduction techniques were used (e.g., Automated exposure control, adjustment of the mA and/or kV according to patient size, use of iterative reconstruction technique). RADIATION DOSE SUMMARY: CTDlvol: 8.5 mGy DLP: 441.84 mGycm COMPARISON: Prior study dated February 14, 2025. FINDINGS: Lung bases: The lung bases are clear. Liver: Normal size. No obvious mass. Gallbladder: Unremarkable Spleen: Normal size. Pancreas: Normal size. No surrounding inflammation. Adrenals: Unremarkable Kidneys: No urolithiasis. No hydronephrosis. Bladder: Unremarkable Reproductive Organs: Unremarkable Bowel: Nonspecific bowel gas pattern. Appendix: Unremarkable Lymph nodes: Nonspecific bilateral inguinal lymph nodes. Vasculature: Unremarkable Peritoneum / Retroperitoneum: Unremarkable Bones: Unremarkable CT/Abdomen/Pelvis without Cont IMPRESSION: No acute abnormality is seen. Reading Location: [id number]
== END | disposition home or self-care (01) ==
PROVIDERS: PCP Nurse Practitioner Family; Referring Provider Obstetrics & Gynecology; Visit Provider Obstetrics & Gynecology
DX: N82.5 Female genital tract-skin fistulae (principal)
CPT/HCPCS: 74176

== ENCOUNTER → 2025-05-07 | Outpatient (CLI) | payer BC, SELFPAY ==
[2025-05-07 10:28] LABS: Hematocrit 42.1 % (37-47); Hemoglobin 13.6 g/dL (12.0-15.0); Immature Granulocytes Count 0.040 X10^3/uL (0.0-0.0); Mean Corp Hgb Conc 32.3 g/dL (32-36); Mean Corpuscular Volume 94.6 fL (81-99); Mean Platelet Vol. 9.1 fl (6.2-12.0); NRBC Flagged by Analyzer 0 % (0-5); Platelet Count 377 K/mm3 (150-450); RBC Distribution Width CV 12.1 % (11.6-14.6); RBC Distribution Width SD 42.4 fl (35.1-43.9); Red Blood Count 4.45 M/mm3 (4.2-5.4); White Blood Count 9.9 K/mm3 (4.4-11.0)
[2025-05-07 11:23] LABS: AST(SGOT) 15 U/L (<=31); Alanine Aminotransfer ALT/SGPT 11 U/L (<=34); Albumin, Serum 4.0 g/dL (3.5-5.0); Alkaline Phosphatase 65 U/L (35-104); Anion Gap 11 (5-15); BUN 9 mg/dL (4-19); BUN/Creat Ratio 11.3 RATIO (10-20); Calcium,Total 9.4 mg/dL (7.6-11.0); Carbon Dioxide 24.2 mmol/L (21.0-32.0); Chloride 104 mmol/L (98-108); Globulin 3.2 g/dL (2.2-4.2); Glucose 105 mg/dL (70-99); Potassium 4.3 mmol/L (3.3-5.1)
== END | disposition home or self-care (01) ==
LOC: LAB 09:13
PROVIDERS: PCP Nurse Practitioner Family; Referring Provider Obstetrics & Gynecology; Visit Provider Obstetrics & Gynecology
DX: L73.2 Hidradenitis suppurativa (principal)
CPT/HCPCS: 36415; 80053; 85025